=== PATIENT | male | born 1970 | race African-American/Black ===

== ENCOUNTER 2021-10-16 18:51 | Inpatient (IN) | payer OTHER ==
[~2021-10-16] VITALS: Ht 185.4 cm; Wt 129.0 kg
[2021-10-16] MEDS ORDERED: methylPREDNISolone SOD SUCC PF 125 MG/2 ML VIAL. IV ONE (19:30)
[2021-10-16] MEDS ORDERED: IPRATRPIUM/ALBUTEROL 0.5/2.5MG 3 ML NEBU. NEB ONE (19:30)
[2021-10-16 19:31] LABS: BASO # 0.1 x10^3/uL (0.0-0.2); BASO % 1 % (0-3); EOS # 0.1 x10^3/uL (0.0-0.7); EOS % 2 % (0-3); HEMATOCRIT 31.6 % (39.0-53.0); HEMOGLOBIN 9.9 g/dL (13.0-17.5); LYMPH # 1.6 x10^3/uL (1.0-4.8); LYMPH % 25 % (24-48); MEAN CORPUSCULAR HEMOGLOBIN 23 pg (25-35); MEAN CORPUSCULAR HGB CONC 31 g/dL (31-37); MEAN CORPUSCULAR VOLUME 72 fL (79-100); MONO # 0.5 x10^3/uL (0.0-1.1); MONO % 8 % (0-9); NEUT # 4.2 x10^3/uL (1.8-7.7); NEUT % 64 % (31-73); PLATELET COUNT 279 x10^3/uL (140-400); RED CELL DISTRIBUTION WIDTH 20.1 % (11.5-14.5); WHITE BLOOD COUNT 6.5 x10^3/uL (4.0-11.0)
--- NOTE | 2021-10-16 19:33 | PHYS DOC ---
Past Medical History Past Surgical History: No Surgical History Smoking Status: Current Every Day Smoker Alcohol Use: Occasionally General Adult EDM: Chief Complaint: SHORTNESS OF BREATH HPI: HPI: Patient is a 51 year old male who presents with 1 week of shortness of air with an intermittent cough. He denies chest pain, abdominal pain, nausea, vomiting, diarrhea, edema, headache, dizziness, numbness tingling, focal weakness, vision change. Has a history of smoking, hypertension, diabetes. Denies any pain at this time. Review of Systems: Review of Systems: Constitutional: Denies fever or chills. [] Eyes: Denies change in visual acuity. [] HENT: Denies nasal congestion or sore throat. [] Respiratory: +cough or +shortness of breath. [] Cardiovascular: Denies chest pain or edema. [] GI: Denies abdominal pain, nausea, vomiting, bloody stools or diarrhea. [] : Denies dysuria. [] Musculoskeletal: Denies back pain or joint pain. [] Integument: Denies rash. [] Neurologic: Denies headache, focal weakness or sensory changes. [] Endocrine: Denies polyuria or polydipsia. [] Lymphatic: Denies swollen glands. [] Psychiatric: Denies depression or anxiety. [] Heart Score: C/O Chest Pain: No HEART Score for Chest Pain: HEART Score for Chest Pain Response (Comments) Value History Slighlty/Non-Suspicious 0 ECG Nonspecific Repolarizatio 1 Age >45 - < 65 1 Risk Factors 1 or 2 Risk Factors 1 Troponin < Normal Limit 0 Total 3 Risk Factors: Risk Factors: DM, Current or recent (<one month) smoker, HTN, HLP, family history of CAD, obesity. Risk Scores: Score 0 - 3: 2.5% MACE over next 6 weeks - Discharge Home Score 4 - 6: 20.3% MACE over next 6 weeks - Admit for Clinical Observation Score 7 - 10: 72.7% MACE over next 6 weeks - Early Invasive Strategies Physical Exam: PE: Constitutional: Well developed, well nourished, no acute distress, non-toxic appearance. [] HENT: Normocephalic, atraumatic, bilateral external ears normal, oropharynx moist, no oral exudates, nose normal. [] Eyes: PERRLA, EOMI, conjunctiva normal, no discharge. [] Neck: Normal range of motion, no tenderness, supple, no stridor. [] Cardiovascular:Heart rate regular rhythm, no murmur [] Lungs & Thorax: Bilateral upper breath sounds clear and left lower lobe expiratory wheezing, right lower lobe diminished to auscultation [] Abdomen: Bowel sounds normal, soft, no tenderness, no masses, no pulsatile masses. [] Skin: Warm, dry, no erythema, no rash. [] Back: No tenderness, no CVA tenderness. [] Extremities: No tenderness, no cyanosis, no clubbing, ROM intact, no edema. [] Neurologic: Alert and oriented X 3, normal motor function, normal sensory function, no focal deficits noted. [] Psychologic: Affect normal, judgement normal, mood normal. [] Current Patient Data: Vital Signs: Vital Signs Date Time Temp Pulse Resp B/P (MAP) Pulse Ox O2 Delivery O2 Flow Rate FiO2 10/16/21 19:12 98.6 110 30 163/97 (119) 93 Room Air 98.6 EKG: EK read by Dr. Crawford as a sinus tachycardia but no STEMI. Radiology/Procedures: Radiology/Procedures: [] Impression: [facility] [address] [place], [place] [id number] IMAGING REPORT Signed PATIENT: BENIGNO WINTERS ACCOUNT: [id number] : 1970 LOCATION: ER AGE: 51 SEX: M EXAM STATUS: REG ER ORD. PHYSICIAN: JAMESON RICHMOND APRN REASON: Shortness of breath PROCEDURE: PORTABLE CHEST 1V XR CHEST 1V 10/16/2021 7:27 PM INDICATION: Shortness of breath COMPARISON: 06/19/2012 TECHNIQUE: Portable frontal view of the chest is provided. FINDINGS: The cardiomediastinal silhouette is within normal limits. Perihilar interstitial changes are present, new from prior examination. There are no significant pleural effusions. There is no pulmonary vascular congestion. No pneumothorax. No suspicious osseous abnormality. IMPRESSION: New perihilar interstitial changes are identified with right hilar prominence. Consideration may be an for interstitial pneumonitis of infectious/inflammatory etiology. Right hilar prominence could reflect prominent pulmonary vasculature versus adenopathy. Electronically signed by: Isabel Lomeli MD (10/16/2021 8:12 PM) [facility] DICTATED and SIGNED BY: ISABEL LOMELI MD DATE: 10/16/212009 Course & Med Decision Making: Course & Med Decision Making Pertinent Labs and Imaging studies reviewed. (See chart for details) COVID-19 CRITERIA: The patient was evaluated during the global COVID-19 pandemic, and that diagnosis was suspected/considered upon their initial presentation. Their evaluation, treatment and testing was consistent with current guidelines for patients who present with complaints or symptoms that may be related to COVID-19. See HPI. Alert and oriented x4. Ambulatory steady gait. Speaks in full clear sentences. No extremity edema. Lungs are clear in upper lobes but left lower lobe has an expiratory wheeze and right lower lobe is diminished. Skin pink warm and dry. Cap refill less than 2 seconds. I have ordered Solu-Medrol and DuoNeb. When walking patient desats to 89% on room air. Chest xray show pneumonia vs pulmonary edema. Patient is given Azithromycin and Rocephin, lasix. He states the duoneb breathing treatment did help some. [] Dragon Disclaimer: Dragon Disclaimer: This electronic medical record was generated, in whole or in part, using a voice recognition dictation system. Departure Departure Impression: Primary Impression: Pneumonia Qualified Codes: J18.9 - Pneumonia, unspecified organism Additional Impressions: Hypoxia Pulmonary edema Qualified Codes: J81.0 - Acute pulmonary edema Disposition: ADMITTED INPATIENT Admitting Physician: HIMMatt Condition: STABLE Referrals: NON,STAFF (PCP) JAMESON RICHMOND APRN Oct 16, 2021 19:33
[2021-10-16 19:54] LABS: CALCIUM 9.4 mg/dL (8.5-10.1); CREATININE 1.3 mg/dL (0.7-1.3); GFR 70.4; POTASSIUM 3.3 mmol/L (3.5-5.1)
[2021-10-16 20:00] LABS: ALBUMIN 3.6 g/dL (3.4-5.0); ALBUMIN/GLOBULIN RATIO 0.9 (1.0-1.7); TOTAL BILIRUBIN 0.5 mg/dL (0.2-1.0); TOTAL PROTEIN 7.7 g/dL (6.4-8.2)
--- NOTE | 2021-10-16 20:14 | RAD ---
XR CHEST 1V 10/16/2021 7:27 PM INDICATION: Shortness of breath COMPARISON: 06/19/2012 TECHNIQUE: Portable frontal view of the chest is provided. FINDINGS: The cardiomediastinal silhouette is within normal limits. Perihilar interstitial changes are present, new from prior examination. There are no significant pleural effusions. There is no pulmonary vascul ar congestion. No pneumothorax. No suspicious osseous abnormality. IMPRESSION: New perihilar interstitial changes are identified with right hilar prominence. Consideration may be a n for interstitial pneumonitis of infectious/inflammatory etiology. Right hilar prominence could refl ect prominent pulmonary vasculature versus adenopathy. Electronically signed by: Noris Bush MD (10/16/2021 8:12 PM) [facility]
[2021-10-16 20:19] LABS: INFLUENZA A PATIENT NEGATIVE (NEGATIVE); INFLUENZA B PATIENT NEGATIVE (NEGATIVE)
[2021-10-16 20:21] LABS: ANISOCYTOSIS MOD; HYPOCHROMIA MOD; PLT ESTIMATE ADEQUATE (ADEQUATE)
[2021-10-16 20:22] LABS: BIZZARE CELLS FEW; MICROCYTOSIS MOD; OVALOCYTES MOD; POLYCHROMASIA SLIGHT
[2021-10-16 21:03] LABS: BACTERIA,URINE 0 /HPF (0-FEW)
[2021-10-16] MEDS ORDERED: AZITHROMYCIN 500 MG in IV NORMAL SALINE 250ML 250 ML IV ONE (21:15)
[2021-10-16] MEDS ORDERED: cefTRIAXone IV Push 1 GM VIAL. IVP ONE (21:15)
[2021-10-16] MEDS ORDERED: FUROSEMIDE 20 MG/2 ML VIAL. IVP ONE (21:15)
[2021-10-16 21:21] LABS: BASE EXCESS COOX -1 mmol/L (-3-3); HCO3 COOX 22 mmol/L (21-28); METHEMOGLOBIN 0.5 % (0.0-1.9); PCO2 COOX 32 mmHg (35-46); PO2 COOX 59 mmHg (75-108); SAT O2 COOX 91 % (92-99)
[2021-10-16 23:50] VITALS: BP 173/85
[2021-10-17 03:07] VITALS: BP 132/79
[2021-10-17] MEDS ORDERED: janumet (03:56)
[2021-10-17] MEDS ORDERED: amlodipine (03:56)
[2021-10-17] MEDS ORDERED: lisinopril (03:56)
[2021-10-17 07:00] VITALS: BP 90/50
[2021-10-17] MEDS ORDERED: LOSA-73 PO (07:05)
[2021-10-17] MEDS ORDERED: TIZA-75 PO (07:05)
[2021-10-17] MEDS ORDERED: SITA1TAB11 PO (07:05)
[2021-10-17] MEDS ORDERED: AMLO-187 PO (07:05)
[2021-10-17] MEDS ORDERED: ATOR20TA58 PO (07:05)
[2021-10-17] MEDS: IPRATRPIUM/ALBUTEROL 0.5/2.5MG 3 ML NEBU. NEB SCH ×4 (08:00→20:13)
[2021-10-17] MEDS ORDERED: IOHEXOL 350 MG/ML 100 ML VIAL. IV ONE (08:30)
[2021-10-17] MEDS ORDERED: CONTRAST GIVEN. MC PRN (08:45)
--- NOTE | 2021-10-17 09:37 | RAD ---
Study: CT CHEST WITH CONTRAST - PULMONARY ANGIOGRAM History: Shortness of air. Comparison: CT thoracic spine 06/19/2012 Technique: Helical CT of the chest performed after the administration of 100 cc Omnipaque 350 intrav enous contrast and timed for angiographic evaluation of the pulmonary arteries per PE protocol. Coron al and sagittal 3D MIP reformations were obtained. One or more of the following individualized dose reduction techniques were utilized for this examinat ion: 1. Automated exposure control 2. Adjustment of the mA and/or kV according to patient size 3. Use of iterative reconstruction technique. Findings: Pulmonary Arteries: Limited evaluation of the segmental/subsegmental pulmonary arteries secondary to bolus timing and patient body habitus. No saddle, main or lobar embolism. Dilatation of the main pulm onary artery measuring 3.4 cm transverse on image 59 series 3. Heart/Systemic Vasculature: Enlarged heart. Nonaneurysmal thoracic aorta. No CT manifestations of ove rt right heart strain. Mediastinum: Mildly enlarged right more so than left hilar lymph nodes. Suspected lymph node enlargem ent at the subcarinal location. Mildly enlarged pretracheal lymph node on image 42 series 3 measuring 1.1 cm AP. Lungs: Numerous solid pulmonary nodules scattered throughout both lungs consistent with metastatic di sease. All lung lobes are involved. There are some pleural/pleural-based metastases such as on the ri ght between the third and fourth ribs, image 53 series 3, measuring 1.8 cm AP. Metastatic foci predom inantly measuring 2 cm or less. Background multifocal groundglass opacities with a basilar predilecti on. Metastatic foci to the lower lobes exert mass effect on small airways. Neck/Axilla/Body Wall: Limited evaluation of the lower neck. No pathologically enlarged axillary lymp h nodes. Mild body wall edema. Upper Abdomen: Partially imaged large heterogeneous density mass at the right upper quadrant presumab ly arising from the right kidney. The visualized portion measures at least 16 cm AP and there is a as sociated small calcification. There may be a small low-attenuation focus within the right hepatic lob e on image 125 series 3 measuring 1.2 cm. Bones: No focally aggressive/lytic osseous lesion. Scattered degenerative changes and diffuse idiopat hic skeletal hyperostosis. Miscellaneous: None. IMPRESSION: 1. Inability to exclude pulmonary emboli within segmental/subsegmental pulmonary arteries secondary to bolus timing and patient body habitus. No saddle, main or lobar embolism. Dilatation of the main p ulmonary artery as can be seen with chronically elevated pulmonary arterial pressures. 2. Numerous metastatic nodules scattered throughout all lung lobes with lesions measuring 2 cm or le ss. A few pleural/pleural-based metastases noted as well. Scattered prominent mediastinal/hilar lymph nodes concerning for additional metastatic disease. There is a partially imaged large heterogeneous density mass at the right upper quadrant measuring at least 16 cm AP likely arising from the right ki dney and presumed to be the primary site of malignancy. 3. Enlarged heart. Scattered groundglass opacities throughout both lungs could represent a superimpo sed atypical infectious process. A component of pulmonary edema is also possible given mild body wall edema but there is no pleural effusion. 4. Possible 1.2 cm hypoattenuating focus within the right hepatic lobe. Attention on follow-up. Electronically signed by: LUCIO RAMÍREZ MD (10/17/2021 9:35 AM) [id number]
[2021-10-17] MEDS: ATORVASTATIN CALCIUM 20 MG TABLET PO SCH (09:40)
[2021-10-17] MEDS: LINAGLIPTIN 5 MG TABLET PO SCH (09:42)
[2021-10-17] MEDS: LOSARTAN POTASSIUM 25 MG TABLET. PO SCH (09:43)
[2021-10-17] MEDS: BUDESONIDE 0.5 MG/2 ML NEBU. NEB SCH ×2 (10:42→20:13)
[2021-10-17 11:00] VITALS: BP 137/82
--- NOTE | 2021-10-17 11:05 | PDOC2 ---
CONSULT Date of Consult Date of Consult DATE: 10/17/21 TIME: 11:05 Reason for Consult Reason for Consult: Congestive heart failure Referring Physician Referring Physician: Dr. Woodward Identification/Chief Complaint Chief Complaint Shortness of breath Source Source: Chart review, Patient History of Present Illness Reason for Visit: 51-year-old male without any previous cardiac history presented with approximately 1 week history of progressive shortness of breath and intermittent cough. He denied any chest pain, orthopnea/PND, palpitations or syncope. He was diagnosed with pneumonia and CHF and admitted for further management. Past Medical History Past Medical History Hypertension Hyperlipidemia Diabetes mellitus type 2 Past Surgical History Past Surgical History: No pertinent history Family History Family History Negative for premature coronary artery disease Social History Social History Patient smokes 1 pack of cigarettes daily and admitted to occasional intake of alcohol. He denied any drug abuse. Current Problem List Problem List Problems Medical Problems: (1) Hypoxia Status: Acute (2) Pneumonia Status: Acute (3) Pulmonary edema Status: Acute Current Medications Current Medications Current Medications Methylprednisolone Sodium Succinate (SOLU-Medrol 125MG VIAL) 125 mg 1X ONCE IV Last administered on 10/16/21at 19:40; Start 10/16/21 at 19:30; Stop 10/16/21 at 19:31; Status DC Albuterol/ Ipratropium (Duoneb) 3 ml 1X ONCE NEB Last administered on 10/16/21at 19:44; Start 10/16/21 at 19:30; Stop 10/16/21 at 19:31; Status DC Furosemide (Lasix) 20 mg 1X ONCE IVP Last administered on 10/16/21at 21:10; Start 10/16/21 at 21:15; Stop 10/16/21 at 21:16; Status DC Azithromycin 500 mg/Sodium Chloride 250 ml @ 250 mls/hr 1X ONCE IV Last administered on 10/16/21at 21:13; Start 10/16/21 at 21:15; Stop 10/16/21 at 22:14; Status DC Ceftriaxone Sodium (Rocephin) 1 gm 1X ONCE IVP Last administered on 10/16/21at 21:12; Start 10/16/21 at 21:15; Stop 10/16/21 at 21:16; Status DC Albuterol/ Ipratropium (Duoneb) 3 ml RTQID NEB Last administered on 10/17/21at 10:41; Start 10/17/21 at 08:00 Budesonide (Pulmicort) 0.5 mg RTBID NEB Last administered on 10/17/21at 10:42; Start 10/17/21 at 08:00 Iohexol (Omnipaque 350 Mg/ml) 100 ml 1X ONCE IV Last administered on 10/17/21at 09:00; Start 10/17/21 at 08:30; Stop 10/17/21 at 08:31; Status DC Info (CONTRAST GIVEN -- Rx MONITORING) 1 each PRN DAILY PRN MC SEE COMMENTS; Start 10/17/21 at 08:45; Stop 10/19/21 at 08:44 Ceftriaxone Sodium (Rocephin) 1 gm Q24H IVP ; Start 10/17/21 at 21:00 Doxycycline Hyclate (Vibra-Tab) 100 mg BID PO ; Start 10/17/21 at 21:00 Amlodipine Besylate (Norvasc) 10 mg DAILY PO ; Start 10/17/21 at 10:00 Atorvastatin Calcium (Lipitor) 20 mg DAILY08 PO Last administered on 10/17/21at 09:40; Start 10/17/21 at 10:00 Losartan Potassium (Cozaar) 25 mg DAILY PO ; Start 10/17/21 at 10:00 Linagliptin (Tradjenta) 5 mg DAILY PO Last administered on 10/17/21at 09:42; Start 10/17/21 at 10:00 Metformin HCl (Glucophage) 500 mg BIDWMEALS PO ; Start 10/19/21 at 17:00 Active Scripts Active Reported Janumet 50-1,000 Mg Tablet (Sitagliptin Phos/Metformin Hcl) 1 Each Tablet 2 Each PO DAILY Losartan Potassium 50 Mg Tablet 25 Mg PO DAILY Atorvastatin Calcium 20 Mg Tablet 1 Tab PO DAILY08 Amlodipine Besylate 10 Mg Tablet 10 Mg PO DAILY Tizanidine Hcl 4 Mg Tablet 1 Tab PO BID Allergies Allergies: Coded Allergies: No Known Allergies (Verified Allergy, Unknown, 10/16/21) ROS PSYCHOLOGICAL ROS: No: Hallucinations Eyes: No Loss of vision HEENT: No: Epistaxis ENDOCRINE: No: Palpitations Respiratory: YES: Cough, Shortness of breath; No: Hemoptysis Genitourinary: No Hematuria Neurological: No Seizures Skin: No Rash Physical Exam General: Alert, Oriented X3 HEENT: Atraumatic Lungs: Other (Bilateral basal crepitations) Heart: Regular rate Abdomen: Soft Extremities: No edema Skin: No rashes Neuro: Normal speech Psych/Mental Status: Mood NL Vitals VITALS Vital Signs Date Time Temp Pulse Resp B/P (MAP) Pulse Ox O2 Delivery O2 Flow Rate FiO2 10/17/21 10:43 96 Room Air 10/17/21 09:43 75 90/50 10/17/21 07:00 97.4 20 97.4 Labs Labs Laboratory Tests Test 10/16/21 19:14 10/16/21 19:32 10/16/21 19:58 10/16/21 20:30 White Blood Count 6.5 x10^3/uL (4.0-11.0) Red Blood Count 4.40 x10^6/uL (4.30-5.70) Hemoglobin 9.9 g/dL (13.0-17.5) Hematocrit 31.6 % (39.0-53.0) Mean Corpuscular Volume 72 fL (79-100) Mean Corpuscular Hemoglobin 23 pg (25-35) Mean Corpuscular Hemoglobin Concent 31 g/dL (31-37) Red Cell Distribution Width 20.1 % (11.5-14.5) Platelet Count 279 x10^3/uL (140-400) Neutrophils (%) (Auto) 64 % (31-73) Lymphocytes (%) (Auto) 25 % (24-48) Monocytes (%) (Auto) 8 % (0-9) Eosinophils (%) (Auto) 2 % (0-3) Basophils (%) (Auto) 1 % (0-3) Neutrophils # (Auto) 4.2 x10^3/uL (1.8-7.7) Lymphocytes # (Auto) 1.6 x10^3/uL (1.0-4.8) Monocytes # (Auto) 0.5 x10^3/uL (0.0-1.1) Eosinophils # (Auto) 0.1 x10^3/uL (0.0-0.7) Basophils # (Auto) 0.1 x10^3/uL (0.0-0.2) Platelet Estimate Adequate (ADEQUATE) Large Platelets Few Polychromasia Slight Hypochromasia Mod Anisocytosis Mod Microcytosis Mod Macrocytosis Slight Ovalocytes Mod RBC Morphology Bizarre Forms Few Sodium Level 144 mmol/L (136-145) Potassium Level 3.3 mmol/L (3.5-5.1) Chloride Level 105 mmol/L (98-107) Carbon Dioxide Level 28 mmol/L (21-32) Anion Gap 11 (6-14) Blood Urea Nitrogen 13 mg/dL (8-26) Creatinine 1.3 mg/dL (0.7-1.3) Estimated GFR (Cockcroft-Gault) 70.4 BUN/Creatinine Ratio 10 (6-20) Glucose Level 133 mg/dL (70-99) Lactic Acid Level 1.7 mmol/L (0.4-2.0) Calcium Level 9.4 mg/dL (8.5-10.1) Total Bilirubin 0.5 mg/dL (0.2-1.0) Aspartate Amino Transf (AST/SGOT) 23 U/L (15-37) Alanine Aminotransferase (ALT/SGPT) 29 U/L (16-63) Alkaline Phosphatase 120 U/L (46-116) Troponin I High Sensitivity 23 ng/L (4-75) AR-Fzw-R-Type Natriuretic Peptide 4191 pg/mL (0-124) Total Protein 7.7 g/dL (6.4-8.2) Albumin 3.6 g/dL (3.4-5.0) Albumin/Globulin Ratio 0.9 (1.0-1.7) O2 Saturation 91 % (92-99) Arterial Blood pH 7.45 (7.35-7.45) Arterial Blood pCO2 at Patient Temp 32 mmHg (35-46) Arterial Blood pO2 at Patient Temp 59 mmHg (75-108) Arterial Blood HCO3 22 mmol/L (21-28) Arterial Blood Base Excess -1 mmol/L (-3-3) Oxyhemoglobin 86.0 % Methemoglobin 0.5 % (0.0-1.9) Carbon Monoxide, Quantitative 4.8 % (0.0-1.9) FiO2 21 Influenza Type A Antigen Negative (NEGATIVE) Influenza Type B Antigen Negative (NEGATIVE) SARS-CoV-2 Antigen (Rapid) Negative (NEGATIVE) Urine Collection Type Unknown Urine Color (Auto) Light yellow Urine Turbidity Clear Urine pH (Auto) 6.0 (<5.0-8.0) Urine Specific [place] 1.020 (1.000-1.030) Urine Protein (Auto) 200 mg/dL (Negative) Urine Glucose (Auto)(UA) Negative mg/dL (Negative) Urine Ketones (Auto) Negative mg/dL (Negative) Urine Blood (Auto) Small (Negative) Urine Nitrite Negative (Negative) Urine Bilirubin (Auto) Negative (Negative) Urine Urobilinogen (Auto) Normal mg/dL (Normal) Urine Leukocyte Esterase (Auto) Negative (Negative) Urine RBC 1-2 /HPF (0-2) Urine WBC 11-20 /HPF (0-4) Urine Bacteria 0 /HPF (0-FEW) Urine Mucus Mod /LPF Test 10/17/21 09:30 Procalcitonin < 0.10 ng/mL (0.00-0.10) Laboratory Tests Test 10/16/21 19:14 10/16/21 19:32 10/16/21 19:58 10/16/21 20:30 White Blood Count 6.5 x10^3/uL (4.0-11.0) Red Blood Count 4.40 x10^6/uL (4.30-5.70) Hemoglobin 9.9 g/dL (13.0-17.5) Hematocrit 31.6 % (39.0-53.0) Mean Corpuscular Volume 72 fL (79-100) Mean Corpuscular Hemoglobin 23 pg (25-35) Mean Corpuscular Hemoglobin Concent 31 g/dL (31-37) Red Cell Distribution Width 20.1 % (11.5-14.5) Platelet Count 279 x10^3/uL (140-400) Neutrophils (%) (Auto) 64 % (31-73) Lymphocytes (%) (Auto) 25 % (24-48) Monocytes (%) (Auto) 8 % (0-9) Eosinophils (%) (Auto) 2 % (0-3) Basophils (%) (Auto) 1 % (0-3) Neutrophils # (Auto) 4.2 x10^3/uL (1.8-7.7) Lymphocytes # (Auto) 1.6 x10^3/uL (1.0-4.8) Monocytes # (Auto) 0.5 x10^3/uL (0.0-1.1) Eosinophils # (Auto) 0.1 x10^3/uL (0.0-0.7) Basophils # (Auto) 0.1 x10^3/uL (0.0-0.2) Platelet Estimate Adequate (ADEQUATE) Large Platelets Few Polychromasia Slight Hypochromasia Mod Anisocytosis Mod Microcytosis Mod Macrocytosis Slight Ovalocytes Mod RBC Morphology Bizarre Forms Few Sodium Level 144 mmol/L (136-145) Potassium Level 3.3 mmol/L (3.5-5.1) Chloride Level 105 mmol/L (98-107) Carbon Dioxide Level 28 mmol/L (21-32) Anion Gap 11 (6-14) Blood Urea Nitrogen 13 mg/dL (8-26) Creatinine 1.3 mg/dL (0.7-1.3) Estimated GFR (Cockcroft-Gault) 70.4 BUN/Creatinine Ratio 10 (6-20) Glucose Level 133 mg/dL (70-99) Lactic Acid Level 1.7 mmol/L (0.4-2.0) Calcium Level 9.4 mg/dL (8.5-10.1) Total Bilirubin 0.5 mg/dL (0.2-1.0) Aspartate Amino Transf (AST/SGOT) 23 U/L (15-37) Alanine Aminotransferase (ALT/SGPT) 29 U/L (16-63) Alkaline Phosphatase 120 U/L (46-116) Troponin I High Sensitivity 23 ng/L (4-75) RW-Jdq-U-Type Natriuretic Peptide 4191 pg/mL (0-124) Total Protein 7.7 g/dL (6.4-8.2) Albumin 3.6 g/dL (3.4-5.0) Albumin/Globulin Ratio 0.9 (1.0-1.7) O2 Saturation 91 % (92-99) Arterial Blood pH 7.45 (7.35-7.45) Arterial Blood pCO2 at Patient Temp 32 mmHg (35-46) Arterial Blood pO2 at Patient Temp 59 mmHg (75-108) Arterial Blood HCO3 22 mmol/L (21-28) Arterial Blood Base Excess -1 mmol/L (-3-3) Oxyhemoglobin 86.0 % Methemoglobin 0.5 % (0.0-1.9) Carbon Monoxide, Quantitative 4.8 % (0.0-1.9) FiO2 21 Influenza Type A Antigen Negative (NEGATIVE) Influenza Type B Antigen Negative (NEGATIVE) SARS-CoV-2 Antigen (Rapid) Negative (NEGATIVE) Urine Collection Type Unknown Urine Color (Auto) Light yellow Urine Turbidity Clear Urine pH (Auto) 6.0 (<5.0-8.0) Urine Specific [place] 1.020 (1.000-1.030) Urine Protein (Auto) 200 mg/dL (Negative) Urine Glucose (Auto)(UA) Negative mg/dL (Negative) Urine Ketones (Auto) Negative mg/dL (Negative) Urine Blood (Auto) Small (Negative) Urine Nitrite Negative (Negative) Urine Bilirubin (Auto) Negative (Negative) Urine Urobilinogen (Auto) Normal mg/dL (Normal) Urine Leukocyte Esterase (Auto) Negative (Negative) Urine RBC 1-2 /HPF (0-2) Urine WBC 11-20 /HPF (0-4) Urine Bacteria 0 /HPF (0-FEW) Urine Mucus Mod /LPF Test 10/17/21 09:30 Procalcitonin < 0.10 ng/mL (0.00-0.10) Assessment/Plan Assessment/Plan 1. Acute hypoxic respiratory failure secondary to combination of pneumonia and CHF, most of the acute on chronic diastolic. Cardiac enzymes negative. EKG showed sinus rhythm without acute changes. Telemetry showed few brief episodes of atrial tachycardia. Symptoms improved after he received Lasix in ED. Check 2D echo to assess LV systolic function. This could be done as an outpatient if discharged over the weekend, along with ischemic evaluation. 2. Pneumonia: Continue antibiotics per primary team 3. Hypertension: Controlled 4. Hyperlipidemia: Continue statin therapy 5. DM2: Treat per IM 6. Tobacco abuse: Advised on smoking cessation Thank you for your consultation RUPAL HOWELL MD Oct 17, 2021 11:05
[2021-10-17 15:00] VITALS: BP 137/86
[2021-10-17 19:00] VITALS: BP 146/85
--- NOTE | 2021-10-17 19:06 | EKG ---
[facility] [address] [place] [address] Test Date: 2021-10-16 Test Time: 19:34:09 Pat Name: BENIGNO WINTERS Department: Room: [facility] Gender: M Master Plumber: : 1970 Requested By: JAMESON RICHMOND Order Number: [id number] Reading MD: Leonid Hines Measurements Intervals [place] Rate: 105 P: 57 [place]: 154 QRS: -31 QRSD: 94 T: 17 QT: 366 QTc: 488 Interpretive Statements SINUS TACHYCARDIA LEFT ATRIAL ABNORMALITY ABNORMAL LEFT AXIS DEVIATION LEFT ANTERIOR FASCICULAR BLOCK INCOMPLETE RIGHT BUNDLE BRANCH BLOCK ABNORMAL ECG RI6.01 No previous ECG available for comparison Electronically Signed On 10-17-2021 21:17:20 CDT by Leonid Hines
[2021-10-17] MEDS: DOXYCYCLINE HYCLATE 100 MG TABLET PO SCH (20:02)
[2021-10-17] MEDS: cefTRIAXone IV Push 1 GM VIAL. IVP SCH (20:03)
[2021-10-17 23:00] VITALS: BP 153/96
[2021-10-18 03:00] VITALS: BP 133/79
--- NOTE | 2021-10-18 06:55 | PDOC ---
PULMONARY PROGRESS NOTES DATE: 10/18/21 TIME: 06:54 Subjective sob better denies cough Vitals Vital Signs Date Time Temp Pulse Resp B/P (MAP) Pulse Ox O2 Delivery O2 Flow Rate FiO2 10/18/21 03:00 97.8 105 18 133/79 (97) 91 97.8 10/17/21 20:15 Room Air ROS: No Nausea General: Alert, Oriented X4 HEENT: Other (nc at perrrl shallow oropharynx. ) Lungs: Crackles Cardiovascular: S1, S2 Abdomen: Soft Neuro Exam: Alert Extremities: Other (edema ) Skin: Warm Labs Laboratory Tests Test 10/16/21 19:14 10/16/21 19:32 10/16/21 19:58 10/16/21 20:30 White Blood Count 6.5 x10^3/uL (4.0-11.0) Red Blood Count 4.40 x10^6/uL (4.30-5.70) Hemoglobin 9.9 g/dL (13.0-17.5) Hematocrit 31.6 % (39.0-53.0) Mean Corpuscular Volume 72 fL (79-100) Mean Corpuscular Hemoglobin 23 pg (25-35) Mean Corpuscular Hemoglobin Concent 31 g/dL (31-37) Red Cell Distribution Width 20.1 % (11.5-14.5) Platelet Count 279 x10^3/uL (140-400) Neutrophils (%) (Auto) 64 % (31-73) Lymphocytes (%) (Auto) 25 % (24-48) Monocytes (%) (Auto) 8 % (0-9) Eosinophils (%) (Auto) 2 % (0-3) Basophils (%) (Auto) 1 % (0-3) Neutrophils # (Auto) 4.2 x10^3/uL (1.8-7.7) Lymphocytes # (Auto) 1.6 x10^3/uL (1.0-4.8) Monocytes # (Auto) 0.5 x10^3/uL (0.0-1.1) Eosinophils # (Auto) 0.1 x10^3/uL (0.0-0.7) Basophils # (Auto) 0.1 x10^3/uL (0.0-0.2) Platelet Estimate Adequate (ADEQUATE) Large Platelets Few Polychromasia Slight Hypochromasia Mod Anisocytosis Mod Microcytosis Mod Macrocytosis Slight Ovalocytes Mod RBC Morphology Bizarre Forms Few Sodium Level 144 mmol/L (136-145) Potassium Level 3.3 mmol/L (3.5-5.1) Chloride Level 105 mmol/L (98-107) Carbon Dioxide Level 28 mmol/L (21-32) Anion Gap 11 (6-14) Blood Urea Nitrogen 13 mg/dL (8-26) Creatinine 1.3 mg/dL (0.7-1.3) Estimated GFR (Cockcroft-Gault) 70.4 BUN/Creatinine Ratio 10 (6-20) Glucose Level 133 mg/dL (70-99) Lactic Acid Level 1.7 mmol/L (0.4-2.0) Calcium Level 9.4 mg/dL (8.5-10.1) Total Bilirubin 0.5 mg/dL (0.2-1.0) Aspartate Amino Transf (AST/SGOT) 23 U/L (15-37) Alanine Aminotransferase (ALT/SGPT) 29 U/L (16-63) Alkaline Phosphatase 120 U/L (46-116) Troponin I High Sensitivity 23 ng/L (4-75) RS-Wec-[id number]-Type Natriuretic Peptide 4191 pg/mL (0-124) Total Protein 7.7 g/dL (6.4-8.2) Albumin 3.6 g/dL (3.4-5.0) Albumin/Globulin Ratio 0.9 (1.0-1.7) O2 Saturation 91 % (92-99) Arterial Blood pH 7.45 (7.35-7.45) Arterial Blood pCO2 at Patient Temp 32 mmHg (35-46) Arterial Blood pO2 at Patient Temp 59 mmHg (75-108) Arterial Blood HCO3 22 mmol/L (21-28) Arterial Blood Base Excess -1 mmol/L (-3-3) Oxyhemoglobin 86.0 % Methemoglobin 0.5 % (0.0-1.9) Carbon Monoxide, Quantitative 4.8 % (0.0-1.9) FiO2 21 Influenza Type A Antigen Negative (NEGATIVE) Influenza Type B Antigen Negative (NEGATIVE) SARS-CoV-2 Antigen (Rapid) Negative (NEGATIVE) Urine Collection Type Unknown Urine Color (Auto) Light yellow Urine Turbidity Clear Urine pH (Auto) 6.0 (<5.0-8.0) Urine Specific [place] 1.020 (1.000-1.030) Urine Protein (Auto) 200 mg/dL (Negative) Urine Glucose (Auto)(UA) Negative mg/dL (Negative) Urine Ketones (Auto) Negative mg/dL (Negative) Urine Blood (Auto) Small (Negative) Urine Nitrite Negative (Negative) Urine Bilirubin (Auto) Negative (Negative) Urine Urobilinogen (Auto) Normal mg/dL (Normal) Urine Leukocyte Esterase (Auto) Negative (Negative) Urine RBC 1-2 /HPF (0-2) Urine WBC 11-20 /HPF (0-4) Urine Bacteria 0 /HPF (0-FEW) Urine Mucus Mod /LPF Test 10/17/21 09:30 10/17/21 11:18 10/17/21 17:08 Procalcitonin < 0.10 ng/mL (0.00-0.10) Glucose (Fingerstick) 163 mg/dL (70-99) 172 mg/dL (70-99) Laboratory Tests Test 10/17/21 09:30 10/17/21 11:18 10/17/21 17:08 Procalcitonin < 0.10 ng/mL (0.00-0.10) Glucose (Fingerstick) 163 mg/dL (70-99) 172 mg/dL (70-99) Medications Active Scripts Medications Dose Route/Sig Max Daily Dose Days Date Category Janumet 50-1,000 Mg Tablet (Sitagliptin Phos/Metformin Hcl) 1 Each Tablet 2 Each PO DAILY 10/17/21 Reported Losartan Potassium 50 Mg Tablet 25 Mg PO DAILY 10/17/21 Reported Atorvastatin Calcium 20 Mg Tablet 1 Tab PO DAILY08 10/17/21 Reported Amlodipine Besylate 10 Mg Tablet 10 Mg PO DAILY 10/17/21 Reported Tizanidine Hcl 4 Mg Tablet 1 Tab PO BID 10/17/21 Reported Comments reviewed 1. Inability to exclude pulmonary emboli within segmental/subsegmental pulmonary arteries secondary to bolus timing and patient body habitus. No saddle, main or lobar embolism. Dilatation of the main pulmonary artery as can be seen with chronically elevated pulmonary arterial pressures. 2. Numerous metastatic nodules scattered throughout all lung lobes with lesions measuring 2 cm or less. A few pleural/pleural-based metastases noted as well. Scattered prominent mediastinal/hilar lymph nodes concerning for additional metastatic disease. There is a partially imaged large heterogeneous density mass at the right upper quadrant measuring at least 16 cm AP likely arising from the right kidney and presumed to be the primary site of malignancy. 3. Enlarged heart. Scattered groundglass opacities throughout both lungs could represent a superimposed atypical infectious process. A component of pulmonary edema is also possible given mild body wall edema but there is no pleural effusion. 4. Possible 1.2 cm hypoattenuating focus within the right hepatic lobe. Attention on follow-up. Impression . IMPRESSION: 1. Acute hypoxemic respiratory failure secondary to congestive heart failure (diastolic versus systolic), chronic obstructive pulmonary disease with mild acute exacerbation doubt he has pneumonia. 2. Abnormal chest x-ray. 3. Obstructive sleep apnea-hypopnea syndrome. 4. Smoker, chronic obstructive pulmonary disease. 5. Hypertension. 6. Diabetes mellitus. 7. Obesity. Plan . PLAN AND RECOMMENDATIONS: 1. I have advised him to stop smoking forever. 2. Agree with Lasix. 3. Cardiology is consulted to consider echo. 4. ct reviewed b lat pulm nodules med lad large right kidney mass suspect metastatic renal cell ca with mets to lungs consider ct of abd urology consult per primary 5. I have discussed obstructive sleep apnea-hypopnea syndrome. The importance of treatment if untreated, increase cardiovascular, [employer] morbidity and mortality. I do recommend a sleep study as an outpatient. 6. He would require PFTs as an outpatient. 7. cont bronchodilator. 8. cont inhaled corticosteroid. He may require systemic steroid. 9. fu procalcitonin. 10. I advised him to lose weight and exercise. 11. The findings and recommendations were discussed with the patient. - discussed w rn and WALLACE Hall MD Oct 18, 2021 06:55
[2021-10-18 07:00] VITALS: BP 143/93
[2021-10-18] MEDS: BUDESONIDE 0.5 MG/2 ML NEBU. NEB SCH ×2 (07:43→18:38)
[2021-10-18] MEDS: IPRATRPIUM/ALBUTEROL 0.5/2.5MG 3 ML NEBU. NEB SCH ×4 (07:43→18:37)
--- NOTE | 2021-10-18 08:17 | PDOC ---
PROGRESS NOTES Date of Service: DATE: 10/18/21 TIME: 08:17 Subjective Subjective Dyspnea improved Objective Objective Vital Signs Date Time Temp Pulse Resp B/P (MAP) Pulse Ox O2 Delivery O2 Flow Rate FiO2 10/18/21 07:46 95 Room Air 10/18/21 07:00 98.7 105 18 143/93 (110) 98.7 Intake and Output 10/18/21 07:00 Intake Total 240 ml Output Total 620 ml Balance -380 ml Intake Oral 240 ml Output Urine Total 620 ml # Voids 5 Physical Exam Abdomen: Soft Heart: Regular rate Extremities: No edema General: Alert, Oriented X3 HEENT: Atraumatic Lungs: Other (Bilateral basal crepitations) Neuro: Normal speech Psych/Mental Status: Mood NL Skin: No rashes Assessment Assessment 1. Acute hypoxic respiratory failure secondary to combination of pneumonia and CHF, most of the acute on chronic diastolic. Cardiac enzymes negative. EKG showed sinus rhythm without acute changes. Telemetry showed few brief episodes of atrial tachycardia. Symptoms improved with diuresis. Check 2D echo to assess LV systolic function. Plan ischemic evaluation as an outpatient 2. Pneumonia: Continue antibiotics per primary team 3. Hypertension: Controlled 4. Hyperlipidemia: Continue statin therapy 5. DM2: Treat per IM 6. Tobacco abuse: Advised on smoking cessation 7. Possible metastatic renal cancer: urology following, plan CT abdomen Plan Plan of Care Problems Medical Problems: (1) Hypoxia Status: Acute (2) Pneumonia Status: Acute (3) Pulmonary edema Status: Acute Comment Review of Relevant I have reviewed the following items annelise (where applicable) has been applied. Labs Laboratory Tests Test 10/17/21 09:30 10/17/21 11:18 10/17/21 17:08 10/18/21 07:37 Procalcitonin < 0.10 ng/mL (0.00-0.10) Glucose (Fingerstick) 163 mg/dL (70-99) 172 mg/dL (70-99) 118 mg/dL (70-99) Microbiology 10/16/21 Blood Culture - Preliminary, Resulted NO GROWTH AFTER 1 DAY Medications Current Medications Amlodipine Besylate (Norvasc) 10 mg DAILY PO ; Start 10/17/21 at 10:00 Atorvastatin Calcium (Lipitor) 20 mg DAILY08 PO Last administered on 10/17/21at 09:40; Start 10/17/21 at 10:00 Ceftriaxone Sodium (Rocephin) 1 gm Q24H IVP Last administered on 10/17/21at 20:03; Start 10/17/21 at 21:00 Doxycycline Hyclate (Vibra-Tab) 100 mg BID PO Last administered on 10/17/21at 20:02; Start 10/17/21 at 21:00 Info (CONTRAST GIVEN -- Rx MONITORING) 1 each PRN DAILY PRN MC SEE COMMENTS; Start 10/17/21 at 08:45; Stop 10/19/21 at 08:44 Iohexol (Omnipaque 350 Mg/ml) 100 ml 1X ONCE IV Last administered on 10/17/21at 09:00; Start 10/17/21 at 08:30; Stop 10/17/21 at 08:31; Status DC Linagliptin (Tradjenta) 5 mg DAILY PO Last administered on 10/17/21at 09:42; Start 10/17/21 at 10:00 Losartan Potassium (Cozaar) 25 mg DAILY PO ; Start 10/17/21 at 10:00 Metformin HCl (Glucophage) 500 mg BIDWMEALS PO ; Start 10/19/21 at 17:00 Vitals/I & O Vital Sign - Last 24 Hours 10/17/21 10/17/21 10/17/21 10/17/21 09:42 09:43 10:43 11:00 Temp 98.2 98.2 Pulse 75 75 95 Resp 20 B/P (MAP) 90/50 90/50 137/82 (100) Pulse Ox 96 92 O2 Delivery Room Air Room Air 10/17/21 10/17/21 10/17/21 10/17/21 15:00 15:30 19:00 20:00 Temp 97.8 98.4 97.8 98.4 Pulse 99 101 Resp 20 18 B/P (MAP) 137/86 (103) 146/85 (105) Pulse Ox 96 98 96 O2 Delivery Room Air Room Air Room Air 10/17/21 10/17/21 10/18/21 10/18/21 20:15 23:00 03:00 07:00 Temp 98.1 97.8 98.7 98.1 97.8 98.7 Pulse 101 105 105 Resp 18 18 18 B/P (MAP) 153/96 (115) 133/79 (97) 143/93 (110) Pulse Ox 98 93 91 91 O2 Delivery Room Air Room Air 10/18/21 10/18/21 07:44 07:46 Pulse Ox 95 95 O2 Delivery Room Air Room Air Intake and Output 10/17/21 10/17/21 10/18/21 15:00 23:00 07:00 Intake Total 240 ml Output Total 620 ml Balance -620 ml 240 ml RUPAL HOWELL MD Oct 18, 2021 08:17
[2021-10-18] MEDS: LINAGLIPTIN 5 MG TABLET PO SCH (08:29)
[2021-10-18] MEDS: LOSARTAN POTASSIUM 25 MG TABLET. PO SCH (08:29)
[2021-10-18] MEDS: ATORVASTATIN CALCIUM 20 MG TABLET PO SCH (08:29)
[2021-10-18] MEDS: DOXYCYCLINE HYCLATE 100 MG TABLET PO SCH ×2 (08:30→21:50)
[2021-10-18 11:00] VITALS: BP 139/78
--- NOTE | 2021-10-18 11:22 | PDOC1 ---
History and Physical Date of Service: DOS: Late entry for October 17 Chief Complaint: Chief Complain: Shortness of breath History of Present Illness: HPI: Patient is a 51 year old male who presents with 1 week of shortness of air with an intermittent cough that is sometimes productive. Otherwise really not many complaints. Still on oxygen. He denies chest pain, abdominal pain, nausea, vomiting, diarrhea, edema, headache, dizziness, numbness tingling, focal weakness, vision change. Has a history of smoking, hypertension, diabetes. Denies any pain at this time. Past Medical/Surgical History: PMH/PSH: Hypertension hyperlipidemia diabetes Allergies: Allergies: Coded Allergies: No Known Allergies (Verified Allergy, Unknown, 10/16/21) Family History: Family History: Diabetes Social History: Social History: Daily tobacco smoker. Denies alcohol drug use Current Medications: Current Medications Current Medications Methylprednisolone Sodium Succinate (SOLU-Medrol 125MG VIAL) 125 mg 1X ONCE IV Last administered on 10/16/21at 19:40; Start 10/16/21 at 19:30; Stop 10/16/21 at 19:31; Status DC Albuterol/ Ipratropium (Duoneb) 3 ml 1X ONCE NEB Last administered on 10/16/21at 19:44; Start 10/16/21 at 19:30; Stop 10/16/21 at 19:31; Status DC Furosemide (Lasix) 20 mg 1X ONCE IVP Last administered on 10/16/21at 21:10; Start 10/16/21 at 21:15; Stop 10/16/21 at 21:16; Status DC Azithromycin 500 mg/Sodium Chloride 250 ml @ 250 mls/hr 1X ONCE IV Last administered on 10/16/21at 21:13; Start 10/16/21 at 21:15; Stop 10/16/21 at 22:14; Status DC Ceftriaxone Sodium (Rocephin) 1 gm 1X ONCE IVP Last administered on 10/16/21at 21:12; Start 10/16/21 at 21:15; Stop 10/16/21 at 21:16; Status DC Albuterol/ Ipratropium (Duoneb) 3 ml RTQID NEB Last administered on 10/18/21at 07:43; Start 10/17/21 at 08:00 Budesonide (Pulmicort) 0.5 mg RTBID NEB Last administered on 10/18/21at 07:43; Start 10/17/21 at 08:00 Iohexol (Omnipaque 350 Mg/ml) 100 ml 1X ONCE IV Last administered on 10/17/21at 09:00; Start 10/17/21 at 08:30; Stop 10/17/21 at 08:31; Status DC Info (CONTRAST GIVEN -- Rx MONITORING) 1 each PRN DAILY PRN MC SEE COMMENTS; Start 10/17/21 at 08:45; Stop 10/19/21 at 08:44 Ceftriaxone Sodium (Rocephin) 1 gm Q24H IVP Last administered on 10/17/21at 20:03; Start 10/17/21 at 21:00 Doxycycline Hyclate (Vibra-Tab) 100 mg BID PO Last administered on 10/18/21at 08:30; Start 10/17/21 at 21:00 Amlodipine Besylate (Norvasc) 10 mg DAILY PO Last administered on 10/18/21at 08:29; Start 10/17/21 at 10:00 Atorvastatin Calcium (Lipitor) 20 mg DAILY08 PO Last administered on 10/18/21at 08:29; Start 10/17/21 at 10:00 Losartan Potassium (Cozaar) 25 mg DAILY PO Last administered on 10/18/21at 08:29; Start 10/17/21 at 10:00 Linagliptin (Tradjenta) 5 mg DAILY PO Last administered on 10/18/21at 08:29; Start 10/17/21 at 10:00 Metformin HCl (Glucophage) 500 mg BIDWMEALS PO ; Start 10/19/21 at 17:00 Active Scripts Active Reported Janumet 50-1,000 Mg Tablet (Sitagliptin Phos/Metformin Hcl) 1 Each Tablet 2 Each PO DAILY Losartan Potassium 50 Mg Tablet 25 Mg PO DAILY Atorvastatin Calcium 20 Mg Tablet 1 Tab PO DAILY08 Amlodipine Besylate 10 Mg Tablet 10 Mg PO DAILY Tizanidine Hcl 4 Mg Tablet 1 Tab PO BID ROS: Review of Systems Review of System Unless noted in HPI 14 point review of systems was negative Physical Exam: Vital Signs: Vital Signs Date Time Temp Pulse Resp B/P (MAP) Pulse Ox O2 Delivery O2 Flow Rate FiO2 10/18/21 11:00 98.6 98 18 139/78 (98) 95 Room Air 98.6 Physcial Exam: GEN: No apparent distress. Alert and oriented HEENT: Normal cephalic, atraumatic, external auditory canals are patent EYES: Extraocular muscles are intact, pupil are equally round and reactive to light and accommodation MUSCULOSKELETAL: Well developed , well nourished, good range of motion ENDOCRINE: No thyromegaly was palpated LYMPHATICS: No cervical chain or axillary nodes were noted HEMATOPOIETIC: No bruising NECK: Supple, no JVD, no thyromegaly was noted LUNGS: Clear to auscultation in all lung rivas without rhonchi or wheezing HEART: RRR, S!, S2 present. Peripheral pulses intact, no obvious murmurs noted ABDOMEN: Soft, nontender. Positive bowel sounds, no organomegaly, normal bowel sounds EXTREMITIES: Without clubbing, cyanosis, or edema. Pedal pulses intact. Negative Homans sign NEUROLOGIC: Normal speech and tone. A&O x 3, moves all extremities, no obvious focal deficits PSYCHIATRIC: Normal affect, normal mood. Stable SKIN: No ulcerations or rashes, good skin turgor, no jaundice VASCULAR: Good capillary refill, neurovascular bundle appears to be intact Labs: Labs: Laboratory Tests Test 10/16/21 19:14 10/16/21 19:32 10/16/21 19:58 10/16/21 20:30 White Blood Count 6.5 x10^3/uL (4.0-11.0) Red Blood Count 4.40 x10^6/uL (4.30-5.70) Hemoglobin 9.9 g/dL (13.0-17.5) Hematocrit 31.6 % (39.0-53.0) Mean Corpuscular Volume 72 fL (79-100) Mean Corpuscular Hemoglobin 23 pg (25-35) Mean Corpuscular Hemoglobin Concent 31 g/dL (31-37) Red Cell Distribution Width 20.1 % (11.5-14.5) Platelet Count 279 x10^3/uL (140-400) Neutrophils (%) (Auto) 64 % (31-73) Lymphocytes (%) (Auto) 25 % (24-48) Monocytes (%) (Auto) 8 % (0-9) Eosinophils (%) (Auto) 2 % (0-3) Basophils (%) (Auto) 1 % (0-3) Neutrophils # (Auto) 4.2 x10^3/uL (1.8-7.7) Lymphocytes # (Auto) 1.6 x10^3/uL (1.0-4.8) Monocytes # (Auto) 0.5 x10^3/uL (0.0-1.1) Eosinophils # (Auto) 0.1 x10^3/uL (0.0-0.7) Basophils # (Auto) 0.1 x10^3/uL (0.0-0.2) Platelet Estimate Adequate (ADEQUATE) Large Platelets Few Polychromasia Slight Hypochromasia Mod Anisocytosis Mod Microcytosis Mod Macrocytosis Slight Ovalocytes Mod RBC Morphology Bizarre Forms Few Sodium Level 144 mmol/L (136-145) Potassium Level 3.3 mmol/L (3.5-5.1) Chloride Level 105 mmol/L (98-107) Carbon Dioxide Level 28 mmol/L (21-32) Anion Gap 11 (6-14) Blood Urea Nitrogen 13 mg/dL (8-26) Creatinine 1.3 mg/dL (0.7-1.3) Estimated GFR (Cockcroft-Gault) 70.4 BUN/Creatinine Ratio 10 (6-20) Glucose Level 133 mg/dL (70-99) Lactic Acid Level 1.7 mmol/L (0.4-2.0) Calcium Level 9.4 mg/dL (8.5-10.1) Total Bilirubin 0.5 mg/dL (0.2-1.0) Aspartate Amino Transf (AST/SGOT) 23 U/L (15-37) Alanine Aminotransferase (ALT/SGPT) 29 U/L (16-63) Alkaline Phosphatase 120 U/L (46-116) Troponin I High Sensitivity 23 ng/L (4-75) [id number]-Uzr-[id number]-Type Natriuretic Peptide 4191 pg/mL (0-124) Total Protein 7.7 g/dL (6.4-8.2) Albumin 3.6 g/dL (3.4-5.0) Albumin/Globulin Ratio 0.9 (1.0-1.7) O2 Saturation 91 % (92-99) Arterial Blood pH 7.45 (7.35-7.45) Arterial Blood pCO2 at Patient Temp 32 mmHg (35-46) Arterial Blood pO2 at Patient Temp 59 mmHg (75-108) Arterial Blood HCO3 22 mmol/L (21-28) Arterial Blood Base Excess -1 mmol/L (-3-3) Oxyhemoglobin 86.0 % Methemoglobin 0.5 % (0.0-1.9) Carbon Monoxide, Quantitative 4.8 % (0.0-1.9) FiO2 21 Influenza Type A Antigen Negative (NEGATIVE) Influenza Type B Antigen Negative (NEGATIVE) SARS-CoV-2 Antigen (Rapid) Negative (NEGATIVE) Urine Collection Type Unknown Urine Color (Auto) Light yellow Urine Turbidity Clear Urine pH (Auto) 6.0 (<5.0-8.0) Urine Specific [place] 1.020 (1.000-1.030) Urine Protein (Auto) 200 mg/dL (Negative) Urine Glucose (Auto)(UA) Negative mg/dL (Negative) Urine Ketones (Auto) Negative mg/dL (Negative) Urine Blood (Auto) Small (Negative) Urine Nitrite Negative (Negative) Urine Bilirubin (Auto) Negative (Negative) Urine Urobilinogen (Auto) Normal mg/dL (Normal) Urine Leukocyte Esterase (Auto) Negative (Negative) Urine RBC 1-2 /HPF (0-2) Urine WBC 11-20 /HPF (0-4) Urine Bacteria 0 /HPF (0-FEW) Urine Mucus Mod /LPF Test 10/17/21 09:30 10/17/21 11:18 10/17/21 17:08 10/18/21 07:37 Procalcitonin < 0.10 ng/mL (0.00-0.10) Glucose (Fingerstick) 163 mg/dL (70-99) 172 mg/dL (70-99) 118 mg/dL (70-99) Laboratory Tests Test 10/17/21 17:08 10/18/21 07:37 Glucose (Fingerstick) 172 mg/dL (70-99) 118 mg/dL (70-99) Assessment/Plan Assessment/Plan Acute hypoxic respiratory failure secondary to infectious pneumonia likely gram- negative. History hypertension hyperlipidemia diabetes -Pneumonia treat with antibiotics and steroid -Pulmonology and cardiology consult -Wean oxygen as tolerated -Home meds as indicated -DVT prophylaxis -CT scan showing renal mass we will do basic work-up 22 minutes of advance care planning. Justifications for Admission Other Justification ELENI LEMUS MD Oct 18, 2021 11:22
--- NOTE | 2021-10-18 11:35 | RAD ---
EXAM: ULTRASOUND ABDOMEN COMPLETE CLINICAL HISTORY: Reason: Right renal mass on CT, assess for density/malignancy / Spl. Instructions: / History: COMPARISON: CTA of the previous day. TECHNIQUE: Ultrasound of the upper abdomen was performed. FINDINGS: No liver parenchymal abnormality is identified. The biliary tree does not appear dilated. The gallbladder contains small stones. Gallbladder wall thickness is mildly prominent, probably due t o relatively poor distention. The right kidney appears to be replaced by large mass extending over nearly 20 cm. The left kidney is also large, measuring 15 cm in length. There may be a smaller mass on the left. There is a rounded a ezra of altered echotexture laterally measuring about 4.0 cm. Additional smaller mass measuring about 3 cm shown toward the lower pole. Pancreas was poorly seen. The spleen is not enlarged. The abdominal aorta and inferior vena cava appear normal in their visuali zed segments, but were poorly seen. IMPRESSION: Large right renal mass and probably smaller left-sided masses. CT or MRI with and without contrast re nal protocol would be more definitive, and also could evaluate for potential liver abnormality descri bed on the previous CTA. Electronically signed by: Shekhar Coronado Jr., MD (10/18/2021 11:33 AM) [id number]
--- NOTE | 2021-10-18 11:49 | PDOC2 ---
UROLOGY CONSULT DOS: DATE: 10/18/21 TIME: 11:44 Reason for Consult: kidney mass Chief Complaint SOA 51 year old male presented with SOA 10/16 and has since been diagnosed with pneu monia. Patient had CTA to rule out pulmonary edema. This showed partially imaged large heterogeneous density mass at the right upper quadrant presumably arising from the right kidney. The visualized portion measures at least 16 cm AP and there is a associated small calcification, in addition to pulmonary nodules and hilar/mediastinal lymphadenopathy. An abdominal ultrasound was completed today showing the same mass, possibly also on the left side. ROS ROS: ROS negative unless mentioned in HPI. Current Medications Current Medications Methylprednisolone Sodium Succinate (SOLU-Medrol 125MG VIAL) 125 mg 1X ONCE IV Last administered on 10/16/21at 19:40; Start 10/16/21 at 19:30; Stop 10/16/21 at 19:31; Status DC Albuterol/ Ipratropium (Duoneb) 3 ml 1X ONCE NEB Last administered on 10/16/21at 19:44; Start 10/16/21 at 19:30; Stop 10/16/21 at 19:31; Status DC Furosemide (Lasix) 20 mg 1X ONCE IVP Last administered on 10/16/21at 21:10; Start 10/16/21 at 21:15; Stop 10/16/21 at 21:16; Status DC Azithromycin 500 mg/Sodium Chloride 250 ml @ 250 mls/hr 1X ONCE IV Last a dministered on 10/16/21at 21:13; Start 10/16/21 at 21:15; Stop 10/16/21 at 22:14; Status DC Ceftriaxone Sodium (Rocephin) 1 gm 1X ONCE IVP Last administered on 10/16/21at 21:12; Start 10/16/21 at 21:15; Stop 10/16/21 at 21:16; Status DC Albuterol/ Ipratropium (Duoneb) 3 ml RTQID NEB Last administered on 10/18/21at 07:43; Start 10/17/21 at 08:00 Budesonide (Pulmicort) 0.5 mg RTBID NEB Last administered on 10/18/21at 07:43; Start 10/17/21 at 08:00 Iohexol (Omnipaque 350 Mg/ml) 100 ml 1X ONCE IV Last administered on 10/17/21at 09:00; Start 10/17/21 at 08:30; Stop 10/17/21 at 08:31; Status DC Info (CONTRAST GIVEN -- Rx MONITORING) 1 each PRN DAILY PRN MC SEE COMMENTS; Start 10/17/21 at 08:45; Stop 10/19/21 at 08:44 Ceftriaxone Sodium (Rocephin) 1 gm Q24H IVP Last administered on 10/17/21at 20:03; Start 10/17/21 at 21:00 Doxycycline Hyclate (Vibra-Tab) 100 mg BID PO Last administered on 10/18/21at 08: 30; Start 10/17/21 at 21:00 Amlodipine Besylate (Norvasc) 10 mg DAILY PO Last administered on 10/18/21at 08:29; Start 10/17/21 at 10:00 Atorvastatin Calcium (Lipitor) 20 mg DAILY08 PO Last administered on 10/18/21at 08:29; Start 10/17/21 at 10:00 Losartan Potassium (Cozaar) 25 mg DAILY PO Last administered on 10/18/21at 08:29; Start 10/17/21 at 10:00 Linagliptin (Tradjenta) 5 mg DAILY PO Last administered on 10/18/21at 08:29; Start 10/17/21 at 10:00 Metformin HCl (Glucophage) 500 mg BIDWMEALS PO ; Start 10/19/21 at 17:00 Active Scripts Active Reported Janumet 50-1,000 Mg Tablet (Sitagliptin Phos/Metformin Hcl) 1 Each Tablet 2 Each PO DAILY Losartan Potassium 50 Mg Tablet 25 Mg PO DAILY Atorvastatin Calcium 20 Mg Tablet 1 Tab PO DAILY08 Amlodipine Besylate 10 Mg Tablet 10 Mg PO DAILY Tizanidine Hcl 4 Mg Tablet 1 Tab PO BID Allergies: Coded Allergies: No Known Allergies (Verified Allergy, Unknown, 10/16/21) Physical Examination PHYSICAL EXAMINATION: GENERAL: Gen. appearance: No acute distress. Mood/affect: Pleasant. HEENT: Head: Normocephalic, atraumatic. Airway Impairment: No. CHEST: Shape and expansion: Normal. Expansion: Normal. SKIN: General: Warm. Color: Good. GENITOURINARY:deferred NEUROLOGICAL: Mental status: Alert and oriented 3. Language: Normal. VITALS Vital Signs Date Time Temp Pulse Resp B/P (MAP) Pulse Ox O2 Delivery O2 Flow Rate FiO2 10/18/21 11:00 98.6 98 18 139/78 (98) 95 Room Air 98.6 Labs Laboratory Tests Test 10/16/21 19:14 10/16/21 19:32 10/16/21 19:58 10/16/21 20:30 White Blood Count 6.5 x10^3/uL (4.0-11.0) Red Blood Count 4.40 x10^6/uL (4.30-5.70) Hemoglobin 9.9 g/dL (13.0-17.5) Hematocrit 31.6 % (39.0-53.0) Mean Corpuscular Volume 72 fL (79-100) Mean Corpuscular Hemoglobin 23 pg (25-35) Mean Corpuscular Hemoglobin Concent 31 g/dL (31-37) Red Cell Distribution Width 20.1 % (11.5-14.5) Platelet Count 279 x10^3/uL (140-400) Neutrophils (%) (Auto) 64 % (31-73) Lymphocytes (%) (Auto) 25 % (24-48) Monocytes (%) (Auto) 8 % (0-9) Eosinophils (%) (Auto) 2 % (0-3) Basophils (%) (Auto) 1 % (0-3) Neutrophils # (Auto) 4.2 x10^3/uL (1.8-7.7) Lymphocytes # (Auto) 1.6 x10^3/uL (1.0-4.8) Monocytes # (Auto) 0.5 x10^3/uL (0.0-1.1) Eosinophils # (Auto) 0.1 x10^3/uL (0.0-0.7) Basophils # (Auto) 0.1 x10^3/uL (0.0-0.2) Platelet Estimate Adequate (ADEQUATE) Large Platelets Few Polychromasia Slight Hypochromasia Mod Anisocytosis Mod Microcytosis Mod Macrocytosis Slight Ovalocytes Mod RBC Morphology Bizarre Forms Few Sodium Level 144 mmol/L (136-145) Potassium Level 3.3 mmol/L (3.5-5.1) Chloride Level 105 mmol/L (98-107) Carbon Dioxide Level 28 mmol/L (21-32) Anion Gap 11 (6-14) Blood Urea Nitrogen 13 mg/dL (8-26) Creatinine 1.3 mg/dL (0.7-1.3) Estimated GFR (Cockcroft-Gault) 70.4 BUN/Creatinine Ratio 10 (6-20) Glucose Level 133 mg/dL (70-99) Lactic Acid Level 1.7 mmol/L (0.4-2.0) Calcium Level 9.4 mg/dL (8.5-10.1) Total Bilirubin 0.5 mg/dL (0.2-1.0) Aspartate Amino Transf (AST/SGOT) 23 U/L (15-37) Alanine Aminotransferase (ALT/SGPT) 29 U/L (16-63) Alkaline Phosphatase 120 U/L (46-116) Troponin I High Sensitivity 23 ng/L (4-75) UX-Jna-D-Type Natriuretic Peptide 4191 pg/mL (0-124) Total Protein 7.7 g/dL (6.4-8.2) Albumin 3.6 g/dL (3.4-5.0) Albumin/Globulin Ratio 0.9 (1.0-1.7) O2 Saturation 91 % (92-99) Arterial Blood pH 7.45 (7.35-7.45) Arterial Blood pCO2 at Patient Temp 32 mmHg (35-46) Arterial Blood pO2 at Patient Temp 59 mmHg (75-108) Arterial Blood HCO3 22 mmol/L (21-28) Arterial Blood Base Excess -1 mmol/L (-3-3) Oxyhemoglobin 86.0 % Methemoglobin 0.5 % (0.0-1.9) Carbon Monoxide, Quantitative 4.8 % (0.0-1.9) FiO2 21 Influenza Type A Antigen Negative (NEGATIVE) Influenza Type B Antigen Negative (NEGATIVE) SARS-CoV-2 Antigen (Rapid) Negative (NEGATIVE) Urine Collection Type Unknown Urine Color (Auto) Light yellow Urine Turbidity Clear Urine pH (Auto) 6.0 (<5.0-8.0) Urine Specific [place] 1.020 (1.000-1.030) Urine Protein (Auto) 200 mg/dL (Negative) Urine Glucose (Auto)(UA) Negative mg/dL (Negative) Urine Ketones (Auto) Negative mg/dL (Negative) Urine Blood (Auto) Small (Negative) Urine Nitrite Negative (Negative) Urine Bilirubin (Auto) Negative (Negative) Urine Urobilinogen (Auto) Normal mg/dL (Normal) Urine Leukocyte Esterase (Auto) Negative (Negative) Urine RBC 1-2 /HPF (0-2) Urine WBC 11-20 /HPF (0-4) Urine Bacteria 0 /HPF (0-FEW) Urine Mucus Mod /LPF Test 10/17/21 09:30 10/17/21 11:18 10/17/21 17:08 10/18/21 07:37 Procalcitonin < 0.10 ng/mL (0.00-0.10) Glucose (Fingerstick) 163 mg/dL (70-99) 172 mg/dL (70-99) 118 mg/dL (70-99) Laboratory Tests Test 10/17/21 17:08 10/18/21 07:37 Glucose (Fingerstick) 172 mg/dL (70-99) 118 mg/dL (70-99) Assessment/Plan ---Probable renal mass CT Chest : Partially imaged large heterogeneous density mass at the right upper quadrant presumably arising from the right kidney. The visualized portion measures at least 16 cm AP and there is a associated small calcification. Pulmonary nodules identified with hilar/mediastinal lyphadenopathy. Concern for metastatic disease. Abdominal ultrasound showing right sided renal mass. Will need better visualization. CT A/P renal mass protocol ordered. Creat stable. Patient may need hem/onc consult. Will defer to primary. Discussed possible need for mass removal, possibly requiring total nephrectomy. Will defer until imaging completed. Case d/w Dr. Andersen. Urology will follow. FELA LEARY APRN Oct 18, 2021 11:49
[2021-10-18] MEDS ORDERED: IOHEXOL 300 MG/ML 100ML VIAL. IV ONE (12:15)
[2021-10-18 15:00] VITALS: BP 138/78
--- NOTE | 2021-10-18 17:57 | PDOC ---
[employer] PROGRESS NOTE Date of Service DOS: DATE: 10/18/21 TIME: 17:56 Chief Complaint Chief Complaint Acute hypoxic respiratory failure secondary to infectious pneumonia likely gram- negative. History hypertension hyperlipidemia diabetes -Pneumonia treat with antibiotics and steroid -Pulmonology and cardiology consult -Wean oxygen as tolerated -Home meds as indicated -DVT prophylaxis -CT scan showing renal mass we will do basic work-up; ultrasound ordered recommending CT renal protocol -Urology consultation History of Present Illness History of Present Illness 10/18 Patient evaluated examined at bedside. Doing well from respiratory standpoint. No complaints to me. Discussed with him at length ultrasound and CT scan findings. Informed him of further imaging this afternoon. He is in a bit of distress but agreeable to continued work-up. Discussed with bedside RN. Vitals/I&O Vitals/I&O: Vital Signs Date Time Temp Pulse Resp B/P (MAP) Pulse Ox O2 Delivery O2 Flow Rate FiO2 10/18/21 15:03 98 Room Air 10/18/21 15:00 97.9 102 18 138/78 (98) 97.9 I & O 10/17/21 10/17/21 10/18/21 15:00 23:00 07:00 Intake Total 240 ml Output Total 620 ml Balance -620 ml 240 ml Physical Exam General: Alert, Oriented X3, Cooperative, No acute distress Heart: Regular rate Lungs: Crackles Abdomen: Soft Extremities: No edema Skin: No rashes Labs Labs: Laboratory Tests Test 10/18/21 07:37 10/18/21 11:43 10/18/21 16:33 Glucose (Fingerstick) 118 mg/dL (70-99) 116 mg/dL (70-99) 148 mg/dL (70-99) Assessment and Plan Assessmemt and Plan Problems Medical Problems: (1) Hypoxia Status: Acute (2) Pneumonia Status: Acute (3) Pulmonary edema Status: Acute Comment Review of Relevant I have reviewed the following items annelise (where applicable) has been applied. Medications: Current Medications Medications (Trade) Dose Ordered Sig/Collins Route PRN Reason Start Time Stop Time Status Last Admin Dose Admin Ceftriaxone Sodium (Rocephin) 1 gm Q24H IVP 10/17/21 21:00 10/17/21 20:03 Doxycycline Hyclate (Vibra-Tab) 100 mg BID PO 10/17/21 21:00 10/18/21 08:30 Iohexol (Omnipaque 300 Mg/ml) 75 ml 1X ONCE IV 10/18/21 12:15 10/18/21 12:16 DC 10/18/21 12:21 Justifications for Admission Other Justification ELENI LEMUS MD Oct 18, 2021 17:57
[2021-10-18 19:00] VITALS: BP 142/88
[2021-10-18] MEDS: LACTOBACILLUS RHAMNOSUS GG 1 CAPSULE. PO SCH (21:50)
[2021-10-18] MEDS: cefTRIAXone IV Push 1 GM VIAL. IVP SCH (21:51)
[2021-10-18] MEDS ORDERED: KETOROLAC 15 MG/ML VIAL. IVP ONE (22:00)
[2021-10-18 23:00] VITALS: BP 145/93
[2021-10-19 03:00] VITALS: BP 141/92
[2021-10-19] MEDS: BUDESONIDE 0.5 MG/2 ML NEBU. NEB SCH (06:48)
[2021-10-19] MEDS: IPRATRPIUM/ALBUTEROL 0.5/2.5MG 3 ML NEBU. NEB SCH ×2 (06:48→10:59)
[2021-10-19 07:00] VITALS: BP 147/88
[2021-10-19] MEDS ORDERED: PERFLUTREN PROTEIN-A MICROSPHR 0.22 MG/ML 3 ML VIAL. IV ONE (08:00)
[2021-10-19] MEDS: DOXYCYCLINE HYCLATE 100 MG TABLET PO SCH (08:03)
[2021-10-19] MEDS: ATORVASTATIN CALCIUM 20 MG TABLET PO SCH (08:03)
[2021-10-19] MEDS: LACTOBACILLUS RHAMNOSUS GG 1 CAPSULE. PO SCH (08:03)
[2021-10-19] MEDS: LINAGLIPTIN 5 MG TABLET PO SCH (08:03)
[2021-10-19] MEDS: LOSARTAN POTASSIUM 25 MG TABLET. PO SCH (08:04)
--- NOTE | 2021-10-19 08:20 | PDOC ---
PULMONARY PROGRESS NOTES DATE: 10/19/21 TIME: 08:20 Subjective sob better denies cough Vitals Vital Signs Date Time Temp Pulse Resp B/P (MAP) Pulse Ox O2 Delivery O2 Flow Rate FiO2 10/19/21 08:04 104 147/88 10/19/21 07:00 97.9 18 93 Room Air 97.9 ROS: No Nausea General: Alert, Oriented X4 HEENT: Other (nc at perrrl shallow oropharynx. ) Lungs: Crackles Cardiovascular: S1, S2 Abdomen: Soft Neuro Exam: Alert Extremities: Other (edema ) Skin: Warm Labs Laboratory Tests Test 10/17/21 09:30 10/17/21 11:18 10/17/21 17:08 10/18/21 07:37 Procalcitonin < 0.10 ng/mL (0.00-0.10) Glucose (Fingerstick) 163 mg/dL (70-99) 172 mg/dL (70-99) 118 mg/dL (70-99) Test 10/18/21 11:43 10/18/21 16:33 10/18/21 21:12 10/19/21 07:53 Glucose (Fingerstick) 116 mg/dL (70-99) 148 mg/dL (70-99) 157 mg/dL (70-99) 122 mg/dL (70-99) Laboratory Tests Test 10/18/21 11:43 10/18/21 16:33 10/18/21 21:12 10/19/21 07:53 Glucose (Fingerstick) 116 mg/dL (70-99) 148 mg/dL (70-99) 157 mg/dL (70-99) 122 mg/dL (70-99) Medications Active Scripts Medications Dose Route/Sig Max Daily Dose Days Date Category Janumet 50-1,000 Mg Tablet (Sitagliptin Phos/Metformin Hcl) 1 Each Tablet 2 Each PO DAILY 10/17/21 Reported Losartan Potassium 50 Mg Tablet 25 Mg PO DAILY 10/17/21 Reported Atorvastatin Calcium 20 Mg Tablet 1 Tab PO DAILY08 10/17/21 Reported Amlodipine Besylate 10 Mg Tablet 10 Mg PO DAILY 10/17/21 Reported Tizanidine Hcl 4 Mg Tablet 1 Tab PO BID 10/17/21 Reported Comments reviewed 1. Inability to exclude pulmonary emboli within segmental/subsegmental pulmonary arteries secondary to bolus timing and patient body habitus. No saddle, main or lobar embolism. Dilatation of the main pulmonary artery as can be seen with chronically elevated pulmonary arterial pressures. 2. Numerous metastatic nodules scattered throughout all lung lobes with lesions measuring 2 cm or less. A few pleural/pleural-based metastases noted as well. Scattered prominent mediastinal/hilar lymph nodes concerning for additional metastatic disease. There is a partially imaged large heterogeneous density mass at the right upper quadrant measuring at least 16 cm AP likely arising from the right kidney and presumed to be the primary site of malignancy. 3. Enlarged heart. Scattered groundglass opacities throughout both lungs could represent a superimposed atypical infectious process. A component of pulmonary edema is also possible given mild body wall edema but there is no pleural effusion. 4. Possible 1.2 cm hypoattenuating focus within the right hepatic lobe. Attention on follow-up. Plan . -ct reviewed b lat pulm nodules med lad large right kidney mass suspect metastatic renal cell ca with mets to lungs consider ct of abd urology consult per primary discussed w rn and HELLEN Jose MD Oct 19, 2021 08:20
--- NOTE | 2021-10-19 08:58 | RAD ---
CT OF THE ABDOMEN AND PELVIS with and without IV CONTRAST. History: Reason: eval renal mass; RENAL PROTOCAL PER ORDEN / Spl. Instructions: OMNI 300 INJ. 75 ML S / History: Comparison:None. Procedure: Contiguous axial images of the abdomen and pelvis were performed without contrast. Continuous axial i mages were obtained of the kidneys after the administration of 75 cc of Omnipaque 300 IV contrast. De layed imaging was then performed of the abdomen and pelvis. Oral contrast: No. Findings: There is a avidly enhancing partially necrotic right renal mass that measures 19 cm x 12 cm x 19 cm. This completely replaces the right kidney. The right adrenal is not seen. There are multiple masses i n the left kidney which are mostly isoattenuating and not easily seen the largest is in the lower vinod e posteriorly and measures 4 7 m in diameter. There is no fat plane between the right kidney mass and the liver and there is loss of the fat plane between the right kidney and the right psoas muscle. There are numerous pulmonary nodules in the lung bases. There is a lytic destructive mass in the righ t iliac. There is a destructive expansile mass completely replacing the right pedicle of L5 and encro aching in the central canal as well as obliteration and obliterating the L4-5 and L5-S1 neuroforamen. There is marked degenerative changes of the lumbar spine at L4-5 and L5-S1 with marked neuroforaminal stenosis of the left L4-5 and L5-S1 neuroforamen. The right adrenal is not seen. The left adrenal appears normal. There is a fat-containing inguinal canal hernia on the left. There is multiple varices on the right a nd there are varices in the right inguinal canal hernia. Liver: Unremarkable Spleen: Unremarkable Pancreas: Unremarkable There is no lymphadenopathy. There is no free air. There is a trace of free fluid to the right of the renal mass. The urinary bladder appears normal. Impression: 1. Large solid avidly enhancing but partially necrotic mass from the right kidney obliterating most o f the normal right renal parenchyma with a small amount of normal renal parenchyma medial to the mass . This is consistent with renal cell carcinoma. There is obliteration of multiple fat planes around t he right renal mass. 2. Multiple metastases in the lung bases. 3. Metastasis to the right iliac and the right L5 pedicle. 4. There are multiple masses in the left kidney which are not well seen the largest is in the lower p ole. These could be additional renal cell carcinoma or could be metastatic cancer. 5. Multiple varices including varices in the right inguinal canal hernia. End Impression PQRS Compliance Statement: One or more of the following individualized dose reduction techniques were utilized for this examinat ion: 1. Automated exposure control 2. Adjustment of the mA and/or kV according to patient size 3. Use of iterative reconstruction technique Electronically signed by: Berny Swift III, MD (10/19/2021 8:56 AM) [id number]
--- NOTE | 2021-10-19 09:12 | CONS ---
DATE OF CONSULTATION: 10/17/2021 REASON FOR CONSULTATION: I was asked to see this 51-year-old gentleman for pneumonia. HISTORY OF PRESENT ILLNESS: He does have history of [id number]-ejnu smoking. He continues to smoke about 1 pack per day. He has not had pulmonary function test and diagnosis of chronic obstructive pulmonary disease. He has had morning cough. For the past few days, he has had increased shortness of breath. He has had lower extremity edema. He denies chest pain. He has occasional cough, denies sputum or fever or chills. He has a history of obstructive sleep apnea-hypopnea syndrome. He did have a CPAP, but it was taken away many years ago since he was not using it. He has snoring and excessive daytime sleepiness. PAST MEDICAL HISTORY: Hypertension, diabetes mellitus. ALLERGIES: No known drug allergies. MEDICATIONS: The patient was given Solu-Medrol, DuoNeb, Lasix, azithromycin, Rocephin in the Emergency Room. SOCIAL HISTORY: History of [id number] smoking. He drinks alcohol occasionally. He is a route driver. FAMILY HISTORY: Positive for heart disease. REVIEW OF SYSTEMS: As mentioned as above, other systems otherwise negative. PHYSICAL EXAMINATION: GENERAL: This is an overweight gentleman. His BMI is 37.5. VITAL SIGNS: His O2 saturation is 91% on room air. Heart rate is 100, blood pressure 132/79, temperature 98.1, respiratory rate 20. HEENT: Normocephalic, atraumatic. Pupils equal, round, and reactive to light. Shallow oropharynx. Nose is clear. NECK: Short, thick. Positive JVD. No lymphadenopathy. CARDIOVASCULAR: Distant heart sounds. Regular rate and rhythm. CHEST: Inspection is normal. LUNGS: There are bibasilar crackles, dullness at the bases. ABDOMEN: Soft and obese. Bowel sounds are good. EXTREMITIES: There is edema. LYMPHATICS: There is no lymphadenopathy. NEUROLOGIC: Alert and oriented. LABORATORY DATA: I reviewed the following lab data: Chest x-ray shows cardiomegaly, bilateral infiltrate, right hilar prominence. WBC 6.5, hemoglobin 9.1, platelets 279. Influenza A and B negative. Rapid COVID negative. ABG: pH 7.45, pCO2 of 32, pO2 of 59. WBC 6.5, hemoglobin 9.9, platelets 279. Sodium 144, potassium 3.3, chloride 105, CO2 of 28, BUN 13, creatinine 1.3. Lactic acid 1.7. BNP 4191. Troponin 23. IMPRESSION: 1. Acute hypoxemic respiratory failure secondary to congestive heart failure (diastolic versus systolic), chronic obstructive pulmonary disease with mild acute exacerbation doubt he has pneumonia. 2. Abnormal chest x-ray. 3. Obstructive sleep apnea-hypopnea syndrome. 4. Smoker, chronic obstructive pulmonary disease. 5. Hypertension. 6. Diabetes mellitus. 7. Obesity. PLAN AND RECOMMENDATIONS: 1. I have advised him to stop smoking forever. 2. Agree with Lasix. 3. Cardiology is consulted to consider echo. 4. I do a CT angiogram of the chest. He does have hypoxemia, shortness of breath, lower extremity edema, need to rule out pulmonary embolism. He has right hilar prominence, which could be prominent pulmonary artery versus lymphadenopathy. CT would help us to differentiate between those two. 5. I have discussed obstructive sleep apnea-hypopnea syndrome. The importance of treatment if untreated, increase cardiovascular, [employer] morbidity and mortality. I do recommend a sleep study as an outpatient. 6. He would require PFTs as an outpatient. 7. Start bronchodilator. 8. Start inhaled corticosteroid. He may require systemic steroid. 9. I will check procalcitonin. 10. I advised him to lose weight and exercise. 11. The findings and recommendations were discussed with the patient. Thank you very much for allowing me to participate in care of this very nice gentleman. [facility] [place]: Katrin TID: [id number]
[2021-10-19 11:00] VITALS: BP 155/96
--- NOTE | 2021-10-19 12:07 | PDOC ---
PROGRESS NOTE DATE OF SERVICE: DATE: 10/19/21 TIME: 12:03 CHIEF COMPLAINT: No urinary complaints at this time. Discussed CT imaging results. SUBJECTIVE: Problems: Problems Medical Problems: (1) Hypoxia Status: Acute (2) Pneumonia Status: Acute (3) Pulmonary edema Status: Acute OBJECTIVE: Vital Signs: Vital Signs Date Time Temp Pulse Resp B/P (MAP) Pulse Ox O2 Delivery O2 Flow Rate FiO2 10/19/21 11:00 98.0 102 18 155/96 (115) 95 Room Air 98.0 10/19/21 10:59 97 Room Air 10/19/21 08:04 104 147/88 10/19/21 08:04 104 147/88 10/19/21 08:00 Room Air 10/19/21 07:00 97.9 104 18 147/88 (107) 93 Room Air 97.9 10/19/21 06:49 97 Room Air 10/19/21 03:00 98.5 99 18 141/92 (108) 95 98.5 10/18/21 23:00 98.3 101 18 145/93 (110) 95 98.3 10/18/21 20:00 Room Air 10/18/21 19:00 98.0 104 18 142/88 (106) 94 98.0 10/18/21 18:38 97 Room Air 10/18/21 15:03 98 Room Air 10/18/21 15:00 97.9 102 18 138/78 (98) 96 Room Air 97.9 I & O Intake and Output 10/19/21 07:00 Intake Total 780 ml Balance 780 ml Intake Oral 780 ml # Voids 9 PHYSICAL EXAM: Physical Exam: General: Pleasant, no acute distress, well groomed Eyes: conjunctiva anicteric, eyes full range of motion ENT: moist oral mucosa, normal dentition Neck: Trachea midline, no masses Respiratory: unlabored breathing, not using accessory muscles, no crackles or wheezes Abdomen: nontender, nondistended, no hepatosplenomegaly, no masses Skin: no rashes or skin lesions on visualized skin Psych: normal mood, affect. Alert and oriented x 3. LABS: Laboratory Tests Test 10/16/21 19:14 10/16/21 19:32 10/16/21 19:58 10/16/21 20:30 White Blood Count 6.5 x10^3/uL (4.0-11.0) Red Blood Count 4.40 x10^6/uL (4.30-5.70) Hemoglobin 9.9 g/dL (13.0-17.5) Hematocrit 31.6 % (39.0-53.0) Mean Corpuscular Volume 72 fL (79-100) Mean Corpuscular Hemoglobin 23 pg (25-35) Mean Corpuscular Hemoglobin Concent 31 g/dL (31-37) Red Cell Distribution Width 20.1 % (11.5-14.5) Platelet Count 279 x10^3/uL (140-400) Neutrophils (%) (Auto) 64 % (31-73) Lymphocytes (%) (Auto) 25 % (24-48) Monocytes (%) (Auto) 8 % (0-9) Eosinophils (%) (Auto) 2 % (0-3) Basophils (%) (Auto) 1 % (0-3) Neutrophils # (Auto) 4.2 x10^3/uL (1.8-7.7) Lymphocytes # (Auto) 1.6 x10^3/uL (1.0-4.8) Monocytes # (Auto) 0.5 x10^3/uL (0.0-1.1) Eosinophils # (Auto) 0.1 x10^3/uL (0.0-0.7) Basophils # (Auto) 0.1 x10^3/uL (0.0-0.2) Platelet Estimate Adequate (ADEQUATE) Large Platelets Few Polychromasia Slight Hypochromasia Mod Anisocytosis Mod Microcytosis Mod Macrocytosis Slight Ovalocytes Mod RBC Morphology Bizarre Forms Few Sodium Level 144 mmol/L (136-145) Potassium Level 3.3 mmol/L (3.5-5.1) Chloride Level 105 mmol/L (98-107) Carbon Dioxide Level 28 mmol/L (21-32) Anion Gap 11 (6-14) Blood Urea Nitrogen 13 mg/dL (8-26) Creatinine 1.3 mg/dL (0.7-1.3) Estimated GFR (Cockcroft-Gault) 70.4 BUN/Creatinine Ratio 10 (6-20) Glucose Level 133 mg/dL (70-99) Lactic Acid Level 1.7 mmol/L (0.4-2.0) Calcium Level 9.4 mg/dL (8.5-10.1) Total Bilirubin 0.5 mg/dL (0.2-1.0) Aspartate Amino Transf (AST/SGOT) 23 U/L (15-37) Alanine Aminotransferase (ALT/SGPT) 29 U/L (16-63) Alkaline Phosphatase 120 U/L (46-116) Troponin I High Sensitivity 23 ng/L (4-75) WI-Sbd-R-Type Natriuretic Peptide 4191 pg/mL (0-124) Total Protein 7.7 g/dL (6.4-8.2) Albumin 3.6 g/dL (3.4-5.0) Albumin/Globulin Ratio 0.9 (1.0-1.7) O2 Saturation 91 % (92-99) Arterial Blood pH 7.45 (7.35-7.45) Arterial Blood pCO2 at Patient Temp 32 mmHg (35-46) Arterial Blood pO2 at Patient Temp 59 mmHg (75-108) Arterial Blood HCO3 22 mmol/L (21-28) Arterial Blood Base Excess -1 mmol/L (-3-3) Oxyhemoglobin 86.0 % Methemoglobin 0.5 % (0.0-1.9) Carbon Monoxide, Quantitative 4.8 % (0.0-1.9) FiO2 21 Influenza Type A Antigen Negative (NEGATIVE) Influenza Type B Antigen Negative (NEGATIVE) SARS-CoV-2 Antigen (Rapid) Negative (NEGATIVE) Urine Collection Type Unknown Urine Color (Auto) Light yellow Urine Turbidity Clear Urine pH (Auto) 6.0 (<5.0-8.0) Urine Specific [place] 1.020 (1.000-1.030) Urine Protein (Auto) 200 mg/dL (Negative) Urine Glucose (Auto)(UA) Negative mg/dL (Negative) Urine Ketones (Auto) Negative mg/dL (Negative) Urine Blood (Auto) Small (Negative) Urine Nitrite Negative (Negative) Urine Bilirubin (Auto) Negative (Negative) Urine Urobilinogen (Auto) Normal mg/dL (Normal) Urine Leukocyte Esterase (Auto) Negative (Negative) Urine RBC 1-2 /HPF (0-2) Urine WBC 11-20 /HPF (0-4) Urine Bacteria 0 /HPF (0-FEW) Urine Mucus Mod /LPF Test 10/17/21 09:30 10/17/21 11:18 10/17/21 17:08 10/18/21 07:37 Procalcitonin < 0.10 ng/mL (0.00-0.10) Glucose (Fingerstick) 163 mg/dL (70-99) 172 mg/dL (70-99) 118 mg/dL (70-99) Test 10/18/21 11:43 10/18/21 16:33 10/18/21 21:12 10/19/21 07:53 Glucose (Fingerstick) 116 mg/dL (70-99) 148 mg/dL (70-99) 157 mg/dL (70-99) 122 mg/dL (70-99) Microbiology 10/16/21 Blood Culture - Preliminary, Resulted NO GROWTH AFTER 2 DAYS 10/16/21 Urine Culture - Final, Complete MEDICATIONS: Current Medications Medications (Trade) Dose Ordered Sig/Collins Start Time Stop Time Status Last Admin Dose Admin Albuterol/ Ipratropium (Duoneb) 3 ml RTQID 10/17/21 08:00 10/19/21 10:59 3 ML Amlodipine Besylate (Norvasc) 10 mg DAILY 10/17/21 10:00 10/19/21 08:04 10 MG Atorvastatin Calcium (Lipitor) 20 mg DAILY08 10/17/21 10:00 10/19/21 08:03 20 MG Azithromycin 500 mg/Sodium Chloride 250 ml @ 250 mls/hr 1X ONCE 10/16/21 21:15 10/16/21 22:14 DC 10/16/21 21:13 250 MLS/HR Budesonide (Pulmicort) 0.5 mg RTBID 10/17/21 08:00 10/19/21 06:48 0.5 MG Ceftriaxone Sodium (Rocephin) 1 gm Q24H 10/17/21 21:00 10/18/21 21:51 1 GM Doxycycline Hyclate (Vibra-Tab) 100 mg BID 10/17/21 21:00 10/19/21 08:03 100 MG Furosemide (Lasix) 20 mg 1X ONCE 10/16/21 21:15 10/16/21 21:16 DC 10/16/21 21:10 20 MG Info (CONTRAST GIVEN -- Rx MONITORING) 1 each PRN DAILY PRN 10/17/21 08:45 10/19/21 08:44 DC Iohexol (Omnipaque 300 Mg/ml) 75 ml 1X ONCE 10/18/21 12:15 10/18/21 12:16 DC 10/18/21 12:21 75 ML Iohexol (Omnipaque 350 Mg/ml) 100 ml 1X ONCE 10/17/21 08:30 10/17/21 08:31 DC 10/17/21 09:00 100 ML Ketorolac Tromethamine (Toradol 15mg Vial) 15 mg 1X ONCE 10/18/21 22:00 10/18/21 22:01 DC 10/18/21 22:11 15 MG Lactobacillus Rhamnosus (Culturelle) 1 cap BID 10/18/21 21:00 10/19/21 08:03 1 CAP Linagliptin (Tradjenta) 5 mg DAILY 10/17/21 10:00 10/19/21 08:03 5 MG Losartan Potassium (Cozaar) 25 mg DAILY 10/17/21 10:00 10/19/21 08:04 25 MG Metformin HCl (Glucophage) 500 mg BIDWMEALS 10/19/21 17:00 Methylprednisolone Sodium Succinate (SOLU-Medrol 125MG VIAL) 125 mg 1X ONCE 10/16/21 19:30 10/16/21 19:31 DC 10/16/21 19:40 125 MG Perflutren Protein Type A Microsphe (Optison) 0.66 mg 1X ONCE 10/19/21 08:00 10/19/21 08:01 DC ASSESSMENT & PLAN --Bilateral renal masses Reviewed CT imaging with patient. There is a partially necrotic right renal mass with near obliteration of the right renal parenchyma as well as multiple masses of the left kidney. Discussed with patient the need for medical oncology management. They have been consulted. Awaiting recommendations. Due to most likely metastatic disease, past the point of surgical resection from urology standpoint. If patient is responsive to chemotherapy, may consider cytoreductive surgery in the future. Patient to follow-up with Dr. Andersen in the clinic in the next 1 to 2 weeks. No further urology intervention will done while inpatient. Discussed with patient and his family the need for close follow-up on an outpatient basis. Patient to call for an appointment at [phone]. Please call with urology concerns. d/w Dr. Andersen Problem List: Problems Medical Problems: (1) Hypoxia Status: Acute (2) Pneumonia Status: Acute (3) Pulmonary edema Status: Acute NADIR [place] Oct 19, 2021 12:07
--- NOTE | 2021-10-19 13:49 | NUR ---
Discharge Note: PT DISCHARGED HOME WITH SELF CARE. PT LEFT FACILITY VIA PRIVATE VEHICLE WITH SPOUSE AT 1350. PT STABLE AND ALERT UPON DISCHARGE. PT PIV REMOVED FROM L AC WITHOUT COMPLICATIONS, BANDAGE APPLIED. PT TELE MONITOR REMOVED. PT EDUCATED ABOUT DISCHARGE INSTRUCTIONS, DISCHARGE MEDICATIONS, AND FOLLOW-UP CARE INSTRUCTIONS WITH [facility]. NO CONCERNS VOICED AT THIS TIME. PT LEFT WITH ALL PERSONAL BELONGINGS. BENIGNO WINTERS Discharge instructions and discharge home medications reviewed with Patient and a copy given. All questions have been answered and understanding verbalized.
--- NOTE | 2021-10-19 14:56 | CARD ---
MR#: [id number] Date of Study: 10/19/2021 Ordering Physician: CANDELARIO PERKINS, Referring Physician: CANDELARIO PERKINS Tech: Berny Sahu [facility] APPROVED REPORT EXAM: Two-dimensional and M-mode echocardiogram with Doppler and color Doppler. Other Information Quality : GoodHR: 102bpm Rhythm : Tachycardia INDICATION Dyspnea RISK FACTORS Hypertension Hyperlipidemia 2D DIMENSIONS Left Atrium(2D)5.3 (1.6-4.0cm)IVSd1.2 (0.7-1.1cm) Aortic Root(2D)3.4 (2.0-3.7cm)LVDd6.2 (3.9-5.9cm) LVOT Diameter2.3 (1.8-2.4cm)PWd1.3 (0.7-1.1cm) LA Kyieiw697 (18-58mL)LVDs4.9 (2.5-4.0cm) FS (%) 21.4 %SV82.6 ml LVEF(%)42.6 (>50%) Aortic Valve AoV Peak Tony.187.0cm/sAoV VTI33.5cm AO Peak GR.14.0mmHgLVOT Peak Tony.113.9cm/s LVOT VTI 21.05cmAO Mean GR.9mmHg GLORIA (VMAX)2.07rx2AAI (VTI)2.51cm2 Mitral Valve MV E Vsxuscek303.4cm/sMV DECEL [id number] MV A Jhrlffqg336.5cm/sMV KIC53kx E/A Ratio1.0MVA (PHT)4.54cm2 TDI E/Lateral E'19.3E/Medial E'15.1 Pulmonary Valve PV Peak Uhvqudbl937.1cm/sPV Peak Grad.6mmHg Tricuspid Valve TR P. Gyfitjob688ez/sTR Peak Gr.33mmHg Pulmonary Vein S1 Yqnomavb44.5cm/sD2 Hudzajsa46.1cm/s LEFT VENTRICLE The Left Ventricle is mildly dilated. There is mild concentric left ventricular hypertrophy. The left ventricular systolic function is mildly diminished. The estimated ejection Fraction is 45% There is mild global hypokinesis of the left ventricle. No left ventricle thrombus noted on this study. There is no ventricular septal defect visualized. There is no left ventricular aneurysm. There is no mass n oted in the left ventricle. RIGHT VENTRICLE The right ventricle is normal size. There is normal right ventricular wall thickness. The right ventr icular systolic function is normal. ATRIA The left atrium is moderately dilated. The right atrium size is normal. The interatrial septum is int act with no evidence for an atrial septal defect or patent foramen ovale as noted on 2-D or Doppler i maging. AORTIC VALVE The aortic valve is normal in structure and function. The aortic valve is trileaflet. Doppler and Col or Flow revealed no significant aortic regurgitation. There is no significant aortic valvular stenosi s. There is no aortic valvular vegetation. MITRAL VALVE The mitral valve is thickened but opens well. There is no evidence of mitral valve prolapse. There is no mitral valve stenosis. Doppler and Color-flow revealed mild to moderate mitral regurgitation. TRICUSPID VALVE The tricuspid valve is normal in structure and function. Doppler and Color Flow revealed mild tricusp id regurgitation. The PA pressure was estimated at 35-40 mmHg. There is no tricuspid valve prolapse o r vegetation. There is no tricuspid valve stenosis. PULMONIC VALVE The pulmonary valve is normal in structure and function. Doppler and Color Flow revealed no pulmonic valvular regurgitation. There is no pulmonic valvular stenosis. GREAT VESSELS The aortic root is normal in size. The ascending aorta is normal in size. The pulmonary artery is nor mal. The IVC is mildly dilated with blunted inspiratory response. PERICARDIAL EFFUSION There is no pleural effusion. There is no evidence of significant pericardial effusion. Critical Notification Critical Value: No <Conclusion> The left ventricular systolic function is mildly diminished. The estimated ejection Fraction is 45% Mild to moderate mitral regurgitation. Mild tricuspid regurgitation. The PA pressure was estimated at 35-40 mmHg. There is no evidence of significant pericardial effusion. Signed by : Leonid Hines, Electronically Approved : 10/19/2021 14:56:29
--- NOTE | 2021-10-19 16:30 | PDOC ---
PROGRESS NOTES Date of Service: DATE: 10/19/21 TIME: 16:28 Subjective Subjective Dyspnea improved Objective Objective Vital Signs Date Time Temp Pulse Resp B/P (MAP) Pulse Ox O2 Delivery O2 Flow Rate FiO2 10/19/21 11:00 98.0 102 18 155/96 (115) 95 Room Air 98.0 Intake and Output 10/19/21 07:00 Intake Total 780 ml Balance 780 ml Intake Oral 780 ml # Voids 9 Physical Exam Abdomen: Soft Heart: Regular rate Extremities: No edema General: Alert, Oriented X3, Cooperative, No acute distress HEENT: Atraumatic Lungs: Other (Bilateral basal crepitations) Neuro: Normal speech Psych/Mental Status: Mood NL Skin: No rashes Assessment Assessment 1. Acute hypoxic respiratory failure secondary to combination of pneumonia and CHF, most of the acute on chronic diastolic. Cardiac enzymes negative. EKG showed sinus rhythm without acute changes. Symptoms improved with diuresis. 2D echo showed LVEF 45%. Plan ischemic evaluation as an outpatient 2. Pneumonia: Continue antibiotics per primary team 3. Hypertension: Controlled 4. Hyperlipidemia: Continue statin therapy 5. DM2: Treat per IM 6. Tobacco abuse: Advised on smoking cessation 7. Metastatic renal cancer: Urology following. Oncology consulted. Plan Plan of Care Problems Medical Problems: (1) Hypoxia Status: Acute (2) Pneumonia Status: Acute (3) Pulmonary edema Status: Acute Comment Review of Relevant I have reviewed the following items nanelise (where applicable) has been applied. Labs Laboratory Tests Test 10/18/21 16:33 10/18/21 21:12 10/19/21 07:53 Glucose (Fingerstick) 148 mg/dL (70-99) 157 mg/dL (70-99) 122 mg/dL (70-99) Microbiology 10/16/21 Blood Culture - Preliminary, Resulted NO GROWTH AFTER 2 DAYS 10/16/21 Urine Culture - Final, Complete Medications Current Medications Ketorolac Tromethamine (Toradol 15mg Vial) 15 mg 1X ONCE IVP Last administered on 10/18/21at 22:11; Start 10/18/21 at 22:00; Stop 10/18/21 at 22:01; Status DC Lactobacillus Rhamnosus (Culturelle) 1 cap BID PO Last administered on 10/19/21at 08:03; Start 10/18/21 at 21:00; Stop 10/19/21 at 13:53; Status DC Metformin HCl (Glucophage) 500 mg BIDWMEALS PO ; Start 10/19/21 at 17:00; Stop 10/19/21 at 13:53; Status DC Perflutren Protein Type A Microsphe (Optison) 0.66 mg 1X ONCE IV ; Start 2 at 08:00; Stop 10/19/21 at 08:01; Status DC Vitals/I & O Vital Sign - Last 24 Hours 10/18/21 10/18/21 10/18/21 10/18/21 18:38 19:00 20:00 23:00 Temp 98.0 98.3 98.0 98.3 Pulse 104 101 Resp 18 18 B/P (MAP) 142/88 (106) 145/93 (110) Pulse Ox 97 94 95 O2 Delivery Room Air Room Air 10/19/21 10/19/21 10/19/21 10/19/21 03:00 06:49 07:00 08:00 Temp 98.5 97.9 98.5 97.9 Pulse 99 104 Resp 18 18 B/P (MAP) 141/92 (108) 147/88 (107) Pulse Ox 95 97 93 O2 Delivery Room Air Room Air Room Air 10/19/21 10/19/21 10/19/21 10/19/21 08:04 08:04 10:59 11:00 Temp 98.0 98.0 Pulse 104 104 102 Resp 18 B/P (MAP) 147/88 147/88 155/96 (115) Pulse Ox 97 95 O2 Delivery Room Air Room Air Intake and Output 10/18/21 10/18/21 10/19/21 15:00 23:00 07:00 Intake Total 360 ml 180 ml 240 ml Balance 360 ml 180 ml 240 ml RUPAL HOWELL MD Oct 19, 2021 16:30
[2021-10-19] MEDS ORDERED: metFORMIN 500 MG TABLET PO SCH (17:00)
== END 2021-10-19 13:50 | disposition home or self-care (01) | DRG 193 ==
LOC: ER 18:51 → ED HOLD 20:36 → 5 NORTH 22:06
PROVIDERS: ADMIT Family Medicine; ATTEND Family Medicine
DX: J18.9 Pneumonia, unspecified organism (principal); J96.01 Acute respiratory failure with hypoxia; I50.33 Acute on chronic diastolic (congestive) heart failure; C64.9 Malignant neoplasm of unspecified kidney, except renal pelvis; I47.1 Supraventricular tachycardia; J44.0 Chronic obstructive pulmonary disease with (acute) lower respiratory infection; J44.1 Chronic obstructive pulmonary disease with (acute) exacerbation; E11.9 Type 2 diabetes mellitus without complications; E66.9 Obesity, unspecified; Z20.822 Contact with and (suspected) exposure to COVID-19; E78.5 Hyperlipidemia, unspecified; F17.210 Nicotine dependence, cigarettes, uncomplicated; G47.33 Obstructive sleep apnea (adult) (pediatric); I11.0 Hypertensive heart disease with heart failure; Z83.3 Family history of diabetes mellitus; Z68.37 Body mass index [BMI] 37.0-37.9, adult
CPT/HCPCS: 36415; 36600; 71045; 71275; 74178; 76700; 80053; 81001; 82805; 82962; 83605; 83880; 84145; 84484; 85025; 87040; 87086; 87428; 93005; 93306; 94640; 94760; 96361; 96374; J0456; J0696; J1885; J1940; J2930; J7050; Q9967; 99285-25; C8929; G0378; J7030; J7626